=== PATIENT | male | born 1955 | race Caucasian/White ===

== ENCOUNTER → 2018-05-27 16:29 | Outpatient (CLI) | payer BC, SELFPAY ==
--- NOTE | 2018-05-27 16:36 | RAD_ITS ---
STUDY: X-RAY CHEST REASON FOR EXAM: Male, 62 years old. Cough. Shortness of breath. TECHNIQUE: Frontal and lateral views of the chest. COMPARISON: None. FINDINGS: The lungs are clear and expanded. There is no demonstrated pleural abnormality. Sternal cerclage wires and vascular clips are present from a prior sternotomy and coronary artery bypass graft procedure (CABG). Normal mediastinum and gentry. Normal visualized pulmonary arteries. Normal visualized aortic arch and descending thoracic aorta. Normal visualized thoracic spine. Normal visualized ribs, clavicles, and shoulders. There is no demonstrated abnormality of the visualized soft tissue structures of the upper abdomen. RAD/Chest PA and Lateral IMPRESSION: No acute chest disease. Electronically Signed: Mauro Hodges MD at 16:56 EDT , Service support ,
== END ==
PROVIDERS: Family Provider Family Medicine; PCP Family Medicine; Visit Provider Family Medicine
DX: R05 Cough (principal)
CPT/HCPCS: 71046

== ENCOUNTER → 2018-10-28 08:51 | Outpatient (CLI) | payer MEDICARE, SELFPAY ==
[2018-06-03 16:46] VITALS: BMI 28.3
[2018-10-28 11:00] LABS: Anion Gap 7 (5-15); BUN 16 mg/dL (7-18); BUN/Creat Ratio 13.4 RATIO (10-20); Calcium,Total 8.9 mg/dL (8.5-10.1); Chloride 109 mmol/L (98-107); Cholesterol 138 mg/dL (200); Creatinine, Serum 1.19 mg/dL (0.70-1.30); EST Glomerular Filtration Rate 65 mL/min (>60); Est Glom Filt Rate - Afr Amer 79 mL/min (>60); Glucose 107 mg/dL (74-106); High Density Lipoprotein 51 mg/dL; PSA,Total - Annual Screen 0.67 ng/mL (0.00-4.00); Potassium 4.1 mmol/L (3.5-5.1); Sodium Level 143 mmol/L (136-145); Triglycerides 75 mg/dL; Very Low Density Lipoprotein 15 mg/dL (5-40)
--- OUTSIDE RECORDS SUMMARY | 2018-12-21 11:03 | XMS RPT_ITS ---
:1955 Author Organization OHIP Care Team Providers Name Role Phone Odette Horne Attending Unavailable Odette Horne Referring Unavailable Marcin Colbert Primary Care Unavailable Kelly Santillan Attending Unavailable Bandar Mckay Attending Unavailable Marcin Colbert Referring Unavailable Marcin Colbert Primary Care Unavailable Marcin Colbert Attending Unavailable Filemon, Marcin Referring Unavailable Marcin Colbert Primary Care Unavailable PROBLEMS PROBLEMS DATE TYPE CONDITION / CODE ATTENDING STATUS SOURCE 05/27/2018 Unknown R05 - Cough / Odette Horne Active [facility]uca R05(ICD-10) [facility] Repository PROCEDURES PROCEDURES No Procedure Records FoundRESULTS RESULTS BASIC METABOLIC Collected: 10/28/2018 Status: F Source: [facility] PROFILE (BMP) 9:01 AM [facility] REPOSITORY Order Comment: Order Date: 04/18/18 Order Info: [id number] - BMP Order Info: [id number] - LIPID Order Info: 2857-1 - PSA TYPE CODE TESTS RESULT OUT OF RANGE REFERENCE UNITS LAB L501.0100 74-106 mg/dL High GLU 107 Result Comment: Fasting Glucose result from 100 to 125 mg/dL suggests IMPAIRED HOMEOSTASIS per A.D.A. criteria. Please note revised GLUCOSE reference range effective 2017. LAB L501.1000 7-18 mg/dL Normal BUN 16 LAB L501.1100 0.70-1.30 mg/dL Normal CREAT,SERUM 1.19 Result Comment: The validity of the calculated GFR AND GFRAA in patients over 70 years has not been determined. Clinical correlation is essential. LAB L501.1110 >60 mL/min Normal EST GFR 65 Result Comment: Non- GFR Calc LAB L501.1115 >60 mL/min Normal EST GFR - AA 79 Result Comment: GFR Calc LAB L501.1300 10-20 RATIO Normal BUN/CRE 13.4 LAB L501.2200 8.5-10.1 mg/dL CA Normal 8.9 LAB L501.5300 136-145 mmol/L NA Normal 143 LAB L501.5600 3.5-5.1 mmol/L K Normal 4.1 LAB L501.5900 98-107 mmol/L High CL 109 LAB L501.6100 21.0-32.0 mmol/L Normal CO2 27.0 LAB L501.6200 5-15 Normal GAP 7 Performed By: #### L500.2500, L500.4100, L501.9910 #### [facility] [address] [place], [address] LIPID PROFILE Collected: 10/28/2018 Status: F Source: [place] 9:01 AM [facility] REPOSITORY Order Comment: Order Date: 04/18/18 Order Info: [id number] - BMP Order Info: [id number] - LIPID Order Info: 2857-1 - PSA TYPE CODE TESTS RESULT OUT OF RANGE REFERENCE UNITS LAB L501.4900 200 mg/dL Normal CHOL 138 Result Comment: <200 mg/dL Desirable 200-240 mg/dL Borderline >240 mg/dL High Risk LAB L501.5000 mg/dL Normal TRIG 75 Result Comment: The drugs N-Acetylcysteine and Metamizole may falsely depress this assay. Serum Triglycerides Reference Interval Normal <150 mg/dL Borderline high 150 - 199 mg/dL High 200 - 499 mg/dL Very High > or = 500 mg/dL LAB L501.6400 mg/dL Normal HDL 51 Result Comment: The drugs N-Acetylcysteine and Metamizole may falsely depress this assay. Reference Range HDL <40 mg/dL Low HDL Cholesterol HDL >or= 60 mg/dL High HDL Cholesterol LAB L501.6500 0-130 mg/dL Normal LDL 72 LAB L501.6600 5-40 mg/dL Normal VLDL 15 Performed By: #### L500.2500, L500.4100, L501.9910 #### [facility] [address] [place], [address] PSA,TOTAL - ANNUAL Collected: 10/28/2018 Status: F Source: CUCA SCREEN 9:01 AM [facility] REPOSITORY Order Comment: Order Date: 04/18/18 Order Info: [id number] - BMP Order Info: [id number] - LIPID Order Info: 2857-1 - PSA TYPE CODE TESTS RESULT OUT OF RANGE REFERENCE UNITS LAB L501.9910 0.00-4.00 ng/mL Normal PSA,TOT 0.67 SCREEN Result Comment: This test was performed using the TPSA assay method for the Librato chemistry system. Values obtained with different assay methods cannot be used interchangably. When changing PSA assays in the course of monitoring a patient, additional sequential testing should be carried out to confirm baseline values. Performed By: #### L500.2500, L500.4100, L501.9910 #### [facility] [address] [place], [address] CARDIOLOGY VISIT Observed: 06/03/2018 Status: F Source: [facility]CA REPORT 5:54 PM [facility] REPOSITORY [facility] [address] [place] [address] OFFICE VISIT Date of Service: 06/03/18 MR#: [id number] Acct: [id number] Name: CRISPIN FERRARO Rep #: [id number] : 1955 Provider: Bandar Mckay MD Age/Sex: 62/M Location: [facility] Status: Signed HPI HPI Details: CRISPIN FERRARO, is a 62 M who presents to the office today for for outpatient cardiovascular follow-up of his history of underlying CAD status post CABG superimposed upon cardiac ectopy, hyperlipidemia, hypertension. Overall he states he is doing well other than having a recent upper respiratory tract related illness which was treated with antibiotic therapy and further evaluated with chest x-ray which was reported as no acute abnormality. He states he does believe he is feeling better overall. He denies any classic symptoms of angina pectoris. There has been no overt episodes of CHF or pulmonary edema. There has been no near syncope or syncope. Intake Vital Signs06/03/18 Height 5 ft 8 in 06/03/18 Weight: 186 lb 06/03/18 Body Mass Index (BMI) 28.3 06/03/18 Blood Pressure 126/74 Intake Visit Reasons: 6 M FU Allergies No Known Allergies Allergy (Verified 06/03/18 16:46) Medications atorvastatin 40 mg tablet 40 mg PO QDAY #30 tab 03/29/18 [Rx Confirmed 06/03/18] lisinopril 2.5 mg tablet 2.5 mg PO BID #180 tab 05/24/18 [Rx Confirmed 06/03/18] aspirin 81 mg tablet,delayed release 81 mg PO QDAY 05/31/18 [History Confirmed 06/03/18] attghbud-cbr-ljtrz acid 0.4 mg-lycopene 300 mcg-lutein 250 mcg tablet 1 tab PO QDAY 05/31/18 [History Confirmed 06/03/18] [facility] Medical History Hypertension (Chronic) Hyperlipidemia (Chronic) Premature ventricular contraction (Acute) Premature atrial contractions (Acute) Atherosclerotic heart disease of rincon coronary artery without angina pectoris (Chronic) Surgical History Aortocoronary bypass status (Chronic 06/08/11) History of cystoscopy (Resolved) History of thoracentesis (Resolved) Social History Smoking Status: Former smoker alcohol intake: current details: occasional ROS Const Const: Positive for fatigue (increased, recovering from a cold? ); negative for weakness, weight gain, weight loss, frequent falls or excessive sweating Eyes Eyes: Negative for change in vision, blurry vision or transient loss of vision ENT ENT: Negative for dizziness or balance problems Cardio Chest Pain: Yes Character: sharp Location: left chest Duration: brief Exacerbation: activity, rest Palpitations: No Edema: None Muscle aches with walking: None Resp Respiratory: Positive for SOB with activity (slight) and SOB at rest (slight) GI GI: Negative vomiting or vomiting blood/hematemesis : Negative for hematuria Musc Musc: Negative for balance problems, muscle aches/ myalgia, muscle weakness or joint pain Skin Skin: Negative non-healing lesions or rash Neuro Neuro: Negative for weakness, blurry vision, dizziness, lightheadedness, frequent falls or orthostatic symptoms [place] Hematologic/Lymphatic: Negative for easy bleeding Endo Endo: Positive for fatigue (increased, recovering from a cold? ); negative for excessive sweating Psych Psych: Negative for anxiety or depression Allergy Allergy/Immunology: Negative for hives, Negative for rash Supplemental Info He did have a transthoracic echocardiogram performed at [facility] on 01/28/2015. The results are as noted below. Interpretation Summary The study was technically difficult. Left ventricular systolic function is normal. The estimated ejection fraction is 60 %. Paradoxical septal wall motion c/w a post open heart surgery state. Trivial mitral valve insufficiency. Trivial tricuspid valve insufficiency. He had a stress nuclear imaging study performed to be stage on 01/28/2015. The results are as noted below. EXERCISE TOLERANCE TEST: The patient exercised on a Chano protocol for 9 minutes completing stage 3 achieving a peak heart rate of 171 beats per minute (107% predicted maximum heart rate) and a peak blood pressure of 170/90 mmHg and a peak MET capacity of 10 METS. The baseline ECG demonstrated normal sinus rhythm. The peak exercise ECG demonstrated approximately 0.5 to 1.0 mm of horizontal/downsloping ST-segment depression in leads II, III, aVF and V4 through V6 with associated T-wave abnormality with resolution towards baseline beginning less than 1 minute in recovery. There were no cardiac dysrhythmias pretest, during exercise, or recovery. The functional capacity was considered good. There was no report of chest discomfort during exercise or recovery. The examination was discontinued secondary to dyspnea. COMMENT: Heart rate response compatible with a deconditioned heart rate response. IMPRESSION: 1. Technically adequate (percent predicted maximum heart rate greater than 85%) exercise tolerance test. 2. Peak exercise ECG with approximately 0.5 to 1.0 mm of horizontal/downsloping ST-segment depression in leads II, III, aVF, and V4 through V6 with associated T -wave abnormality with resolution towards baseline beginning less than 1 minute in recovery. 3. Nuclear images pending. 4. Comment: Heart response compatible with deconditioned heart rate response. MYOCARDIAL PERFUSION IMAGING STUDY: TECHNIQUE: The patient was injected with 10.8 mCi of Tc99m Cardiolite and subsequently rest SPECT Cardiolite nuclear imaging was obtained in the horizontal long, vertical long, and short axes views. The patient exercised on a Chano protocol for 9 minutes achieving a peak heart rate of 171 beats per minute (107% predicted maximum heart rate) with a peak blood pressure of 170/90 mmHg and a peak MET capacity of 10 METS. The patient was injected with 31.5 mCi of Tc99m Cardiolite and subsequently stress SPECT Cardiolite nuclear imaging was obtained in the horizontal long, vertical long, and short axes views. A gated Cardiolite study at peak stress was obtained. INTERPRETATION: Rest and stress SPECT Cardiolite nuclear imaging demonstrate at rest areas of extracardiac/hepatic and gastrointestinal tracer uptake near the inferior segments. This is less prominent following stress. Otherwise, there appears to be relative uniform tracer uptake. There was end systolic thickening and brightening. The gated Cardiolite study demonstrates myocardial thickening and inward wall motion. The reported LVEF was 63%. IMPRESSION: 1. Rest and stress SPECT Cardiolite nuclear imaging demonstrate relative uniform tracer uptake and myocardial perfusion appearing within normal limits. 2. The gated Cardiolite study reports an LVEF of 63%. His diagnostic cardiac catheterization was performed at [facility] on 06/05/2011. At that point in time he had severe coronary artery disease with what was considered moderate left main coronary artery disease, 40% stenosis in the distal main coronary artery, an occluded LAD, 80% stenosis in the ostial portion of the first diagonal branch, proximal RCA ectasia with 90% stenosis in the mid posterior descending coronary artery, collateral flow from the distal posterior descending coronary artery to the distal LAD, a normal left ventricle with an LVEF of greater than 60%. The LCx/intermediate ramus system was reported as patent. He had a Holter monitor performed on 08/17/2011. The results are as noted below. NORMAL SINUS RHYTHM MINIMUM HR 52 8PM AT 9:00:10 PM, NO ACTIVITY OR SYMPTOM RECORDED. AVERAGE HR 70 8PM MAXIMUM HR 117 8PM AT 5:03:57 PM WHILE WALKING, NO SYMPTOM RECORDED. RARE ISOLATED PREMATURE ATRIAL COMPLEXES. 9 ATRIAL COUPLETS. ONE 4 BEAT RUN OF PROBABLE ECTOPIC ATRIAI TACHYCARDIA RATE 117 8PM AT 1:52:30 PM. RARE ISOLATED PREMATURE VENTRICULAR COMPLEXES. NO RUNS NOTED. NO SYMPTOMS DOCUMENTED IN 24 HOUR HOLTER DIARY. His previous open heart surgery was performed at [facility] on 06/08/2011. At that point time he had a robotic assisted multiple coronary artery bypass grafting 4 with a TENORIO to the LAD, and individual SVG graft to the second diagonal branch, and individual SVG graft to the second obtuse marginal branch, and an individual SVG graft to the posterior descending coronary artery of the RCA system performed by Parag Carter MD Assessment AND Plan 1. Atherosclerosis of rincon coronary artery of rincon heart without angina pectoris I25.10 CABG x4- TENORIO to LAD, SVG to diag 2 of the LAD, SVG to 2nd marginal branch fo the CX, and SVG to the PDA 06/08/11 Plan At the present time he appears to be doing well. He has no acute complaints. He will continue his current cardiovascular medical management. He will have future outpatient cardiovascular follow-up. 2. Postsurgical aortocoronary bypass status Z95.1 CABG x4- TENORIO to LAD, SVG to diag 2 of the LAD, SVG to 2nd marginal branch fo the CX, and SVG to the PDA 06/08/11 Plan He underwent previous CABG as noted above. Again he will continue medical management and follow-up as noted above. 3. Premature atrial beat I49.1 Plan He is not complaining of any ectopy at this time. He will continue medical therapy and follow-up. 4. Premature ventricular beat I49.3 Plan Again he has no complaints of ongoing ectopy. There is been no near syncope or syncope. He will continue medical management. 5. Hyperlipidemia, unspecified hyperlipidemia type E78.5 Plan He had his lipid labs checked in 2017. They were under reasonably good control. He believes they may have been checked since that time. A copy of his most recent lipid labs will be appreciated for continuity of care. 6. Essential hypertension I10 Plan His blood pressure appears to be under good control. He will continue medical therapy. Plan Detail Additional Comments Thank you for allowing me to participate in the care of your patient. Please don't hesitate to call if any issues arise. This note was generated using a voice recognition system and there may be incorrect words, spelling or punctuation that were not noted when reviewing the office note prior to saving. Follow Up 6 Months (PFM) Coding Level of Care Code Off vis,est,level 4 Diagnoses Atherosclerosis of rincon coronary artery of rincon heart without angina pectoris I25.10 [place] vs. transplanted heart: rincon heart Postsurgical aortocoronary bypass status Z95.1 Premature atrial beat I49.1 Premature ventricular beat I49.3 Hyperlipidemia, unspecified hyperlipidemia type E78.5 Hyperlipidemia type: unspecified Essential hypertension I10 Hypertension type: essential hypertension Coding Level of Care Code Off vis,est,level 4 Diagnoses Atherosclerosis of rincon coronary artery of rincon heart without angina pectoris I25.10 [place] vs. transplanted heart: rincon heart Postsurgical aortocoronary bypass status Z95.1 Premature atrial beat I49.1 Premature ventricular beat I49.3 Hyperlipidemia, unspecified hyperlipidemia type E78.5 Hyperlipidemia type: unspecified Essential hypertension I10 Hypertension type: essential hypertension 06/03/18 1754 <Electronically signed by Bandar Mckay MD> Date Bandar Mckay MD Cosigner Signature: Date (if applicable) CC: Marcin Colbert MD CHEST PA AND LATERAL Observed: 05/27/2018 Status: F Source: [place] 4:37 PM [facility] REPOSITORY [facility] Imaging Services [address] [place] [id number] Chest PA and Lateral MR#: [id number] Acct: [id number] Name: CRISPIN FERRARO Rep #: [id number] : 1955 M 62 From: Mauro Hodges MD PCP: Marcin Colbert MD Status: REG CLI Study: Chest PA and Lateral Date of Exam: 05/27/18 Exam# [id number] Ordering Dr: Odette Horne MD STUDY: X-RAY CHEST REASON FOR EXAM: Male, 62 years old. Cough. Shortness of breath. TECHNIQUE: Frontal and lateral views of the chest. COMPARISON: None. FINDINGS: The lungs are clear and expanded. There is no demonstrated pleural abnormality. Sternal cerclage wires and vascular clips are present from a prior sternotomy and coronary artery bypass graft procedure (CABG). Normal mediastinum and gentry. Normal visualized pulmonary arteries. Normal visualized aortic arch and descending thoracic aorta. Normal visualized thoracic spine. Normal visualized ribs, clavicles, and shoulders. There is no demonstrated abnormality of the visualized soft tissue structures of the upper abdomen. RAD/Chest PA and Lateral IMPRESSION: No acute chest disease. Electronically Signed: Mauro Hodges MD at 16:56 EDT , Service support , CC: Odette Horne MD; Marcin Colbert MD Corrosion Control Specialist: Signed ALLERGIES ALLERGIES DATE TYPE / CODE NAME / CODE REACTION SEVERITY SOURCE 06/03/2018 Drug No Known Unknown [facility] Allergy/4160 Allergies/F00 Hospital 55386(SNOMED 5513575(RXNOR Repository CT) M) ENCOUNTERS ENCOUNTERS ADMIT/DISCHARGE ACCOUNT ADMITTING ENCOUNTER LOCATION SOURCE NUMBER CLASS 10/28/2018 [id number] Ambulatory [facility] 8 [facility] ing:MTLAB Repository 06/03/2018/ [id number] Ambulatory BMSBuilding:B [facility] 8 2 [facility] Repository 05/31/2018 [id number] Ambulatory BMSBuilding:B [facility] 0 [facility] Repository 05/27/2018 [id number] Ambulatory [facility] 2 [facility] ing:MTRAD Repository PAYERS PAYERS ENCOUNTER GUARANTOR PAYER SUBSCRIBER SOURCE 10/28/2018 CRISPIN Benitez Primary CRISPIN [id number] Insurance:DIANN STYLES: [id number]: Repository [id number]: (449) [id number] [phone] (HP) e Date:7739-31-16[address], [place] [address]IK: 10/28/2018 Secondary NOT GIVENUNK [facility] Insurance:SELF PAY [facility] Number: Effective Repository Date:2018-10-28 06/03/2018 CRISPIN Benitez Primary CRISPIN Thurman [id number] Insurance:ANTHEMPolic WALTERDOB: Community [place] Number: [id number], [place] [id number] Repository 511[address]Btp: (330) Date:6250-19-27IZ [phone] () [id number] [place] [id number]: 06/03/2018 Secondary NOT GIVENUNK [facility] Insurance:SELF PAY [facility] Number: Effective Repository Date:2017-11-14 05/31/2018 Crispin Benitez Primary Crispin Thurman [id number] Insurance:ANTHEMPolic WalterDOB: Community [place] Number: [id number] [id number] Repository [address]Zxj: ([phone]) Date:6226-02-59BR [phone] () [id number] [place] [id number]: 05/31/2018 Secondary NOT GIVENUNK [facility] Insurance:SELF PAY [facility] Number: Effective Repository Date:2018-05-31 05/27/2018 Crispin Benitez Primary Crispin Thurman [id number] Insurance:ANTHEMPolic WalterDOB: Community [place] y Number: [id number] [id number] Repository [address]Hwv: ([phone]) Date:1043-93-18PF [phone] () [id number] [place] [id number]: 05/27/2018 Secondary NOT GIVENUNK [facility] Insurance:SELF PAY [facility] Number: Effective Repository Date:2018-05-27
== END ==
PROVIDERS: Family Provider Family Medicine; PCP Family Medicine; Referring Provider Family Medicine; Visit Provider Family Medicine
DX: I10 Essential (primary) hypertension (principal); E78.00 Pure hypercholesterolemia, unspecified; Z12.5 Encounter for screening for malignant neoplasm of prostate
CPT/HCPCS: 36415; 80048; 80061; 84153; G0103

== ENCOUNTER → 2019-06-24 | Outpatient (CLI) | payer MEDICARE, SELFPAY ==
[2019-06-17 06:53] VITALS: BMI 28.5
[2019-06-24 10:22] LABS: Glucose 98 mg/dL (74-106)
[2019-06-24 10:31] LABS: AST(SGOT) 19 U/L (15-37); Alanine Aminotransfer ALT/SGPT 31 U/L (16-61); Albumin, Serum 3.7 g/dL (3.2-5.0); Alkaline Phosphatase 62 U/L (45-117); Bilirubin, Direct 0.27 mg/dL (0.00-0.30); Cholesterol 134 mg/dL (200); High Density Lipoprotein 52 mg/dL; Protein, Total 6.7 g/dL (6.4-8.2); Triglycerides 93 mg/dL; Very Low Density Lipoprotein 19 mg/dL (5-40)
[2019-06-24 15:10] LABS: Hemoglobin A1c 5.3 % (4.2-6.3)
== END | disposition home or self-care (01) ==
LOC: MTLAB 08:00
PROVIDERS: Family Provider Family Medicine; PCP Family Medicine; Referring Provider Nurse Practitioner Family; Visit Provider Nurse Practitioner Family
DX: E78.5 Hyperlipidemia, unspecified (principal); Z95.1 Presence of aortocoronary bypass graft; R73.09 Other abnormal glucose
CPT/HCPCS: 80061; 80076; 82947; 83036

== ENCOUNTER → 2019-10-16 08:27 | Outpatient (CLI) | payer MEDICARE, OTHER, SELFPAY ==
[2019-06-17 06:53] VITALS: BMI 28.5
[2019-10-16 10:02] LABS: Absolute Lymphocyte Count 1.64 X10^3/uL (0.83-4.51); Absolute Neutrophil Count 4.4 X10^3/uL (2.0-7.7); Basophil# 0.05 X10^3/uL; Basophil% 0.7 % (0-1); Eosinophils% 4.2 % (0-5); Hematocrit 41.9 % (40-54); Hemoglobin 14.1 g/dL (13.0-16.5); Lymphocyte # 1.64 X10^3/ul (4.0); Lymphocyte % 23.1 % (19-41); Mean Corp Hgb Conc 33.7 g/dL (32-36); Mean Corpuscular Hgb 30.2 pg (27.0-32.0); Mean Corpuscular Volume 89.7 fL (80-94); Mean Platelet Vol. 10.2 fl (6.2-12.0); Monocyte% 9.8 % (0-10); NRBC Flagged by Analyzer 0 % (0-5); Neutrophil # 4.38 X10^3/uL (2.7-7.7); Neutrophil % 61.6 % (47-70); Platelet Count 209 K/mm3 (150-450); RBC Distribution Width CV 12.3 % (11.6-14.6); RBC Distribution Width SD 39.9 fl (35.1-43.9); Red Blood Count 4.67 M/mm3 (4.6-6.2); White Blood Count 7.1 K/mm3 (4.4-11.0)
[2019-10-16 10:39] LABS: Anion Gap 6 (5-15); BUN 14 mg/dL (7-18); Calcium,Total 9.3 mg/dL (8.5-10.1); Chloride 108 mmol/L (98-107); Creatinine, Serum 1.08 mg/dL (0.70-1.30); EST Glomerular Filtration Rate 73 mL/min (>60); Est Glom Filt Rate - Afr Amer 88 mL/min (>60); Glucose 98 mg/dL (74-106); Potassium 4.5 mmol/L (3.5-5.1); Sodium Level 142 mmol/L (136-145)
== END ==
PROVIDERS: Family Provider Family Medicine; PCP Family Medicine; Referring Provider Family Medicine; Visit Provider Family Medicine
DX: I10 Essential (primary) hypertension (principal); R23.2 Flushing
CPT/HCPCS: 36415; 80048; 84443; 85025

== ENCOUNTER → 2019-12-26 08:17 | Outpatient (CLI) | payer MEDICARE, OTHER, SELFPAY ==
[2019-12-19 11:00] VITALS: BMI 28.3
[2019-12-26 11:04] LABS: AST(SGOT) 23 U/L (15-37); Alanine Aminotransfer ALT/SGPT 49 U/L (16-61); Albumin, Serum 3.8 g/dL (3.2-5.0); Alkaline Phosphatase 70 U/L (45-117); Bilirubin, Direct 0.21 mg/dL (0.00-0.30); Cholesterol 151 mg/dL (200); Globulin 3.2 g/dL (2.2-4.2); High Density Lipoprotein 55 mg/dL; Triglycerides 62 mg/dL; Very Low Density Lipoprotein 12 mg/dL (5-40)
== END ==
PROVIDERS: PCP Family Medicine; Referring Provider Internal Medicine Cardiovascular Disease; Visit Provider Internal Medicine Cardiovascular Disease
DX: E78.00 Pure hypercholesterolemia, unspecified (principal)
CPT/HCPCS: 36415; 80061; 80076

== ENCOUNTER → 2020-03-19 14:33 | Outpatient (CLI) | payer MEDICARE, OTHER, SELFPAY ==
[2020-03-19 14:16] VITALS: BMI 28.3
--- NOTE | 2020-03-19 14:36 | RAD_ITS ---
STUDY: X-RAY CHEST REASON FOR EXAM: Male, 64 years old. CHEST PAIN WITH SOME RADIATION INTO BACK TECHNIQUE: PA and lateral views of the chest. COMPARISON: 05/27/2018. FINDINGS: The lungs are clear and expanded. There is no demonstrated pleural abnormality. Midline sternotomy wires with normal size of the heart. Normal mediastinum and gentry. Normal visualized pulmonary arteries. Normal visualized aortic arch and descending thoracic aorta. Normal visualized thoracic spine. Normal visualized ribs, clavicles, and shoulders. There is no demonstrated abnormality of the visualized soft tissue structures of the upper abdomen. RAD/Chest PA and Lateral IMPRESSION: Status postoperative changes as described above, otherwise normal x-ray examination of the chest. Electronically Signed: Mandy Martin MD at 0:20 EDT , Service support ,
== END ==
PROVIDERS: PCP Family Medicine; Referring Provider Physician Assistant Medical; Visit Provider Physician Assistant Medical
DX: I25.10 Atherosclerotic heart disease of native coronary artery without angina pectoris (principal); E78.5 Hyperlipidemia, unspecified; R07.9 Chest pain, unspecified
CPT/HCPCS: 71046

== ENCOUNTER → 2020-04-14 06:08 | Outpatient (CLI) | payer MEDICARE, OTHER, SELFPAY ==
[2020-03-19 14:16] VITALS: BMI 28.3
--- NOTE | 2020-04-14 08:17 | STRESSREP ---
Stress Test Report Date: 04-14-2020 Procedure: Exercise tolerance test/imaging study Indications: Chest pain; CAD; CABG Consent: Per the patient Procedure: The patient exercised on a Chano protocol for 7 minutes and 30 seconds completing Stage I and 1 minute and 30 seconds of Stage II achieving a peak heart rate of 166 bpm (107 % predicted maximal heart rate) with a peak blood pressure 192/92 mmHg and a peak MET capacity of 9 METs. The baseline ECG demonstrated sinus rhythm. The peak exercise ECG demonstrated approximately 0.5 to 1[address] segment depression in leads II, III, aVF, and V3 through V6 with subsequent resolution towards baseline in recovery. There were occasional PVCs during exercise and occasional PACs and PVCs during recovery. The functional capacity was considered average. There was no complaint of chest discomfort during exercise or recovery. The examination was discontinued secondary to dyspnea. Impression: 1. Technically adequate (percent predicted maximal heart rate greater than 85%) exercise tolerance test 2. Peak exercise ECG with approximately 0.5 to [address] segment depression in leads II, III, aVF, and V3 through V6 with subsequent resolution towards baseline in recovery 3. There were occasional PVCs during exercise and occasional PACs and PVCs during recovery 4. Nuclear images pending Myocardial perfusion imaging study: Technique: The patient was injected with 11.0 mCi of technetium 99m Cardiolite and subsequently rest SPECT Cardiolite nuclear imaging was obtained in the horizontal long, vertical long, and short axis views. The patient exercised on a Chano protocol for 7 minutes and 30 seconds completing Stage I and 1 minute and 30 seconds of Stage II achieving a peak heart rate of 166 bpm (107 % predicted maximal heart rate) with a peak blood pressure 192/92 mmHg and a peak MET capacity of 9 METs. The patient was injected with 33.0 mCi of technetium 99m Cardiolite and subsequently stress SPECT Cardiolite nuclear imaging was obtained in the horizontal long, vertical long, and short axis views. A gated Cardiolite study at peak stress was obtained. Interpretation: Rest and stress SPECT Cardiolite nuclear imaging status post realignment, normalization, and attenuation correction, demonstrates the appearance of relative uniform tracer uptake and myocardial perfusion appearing within normal limits. There are no myocardial perfusion deficits appreciated on the post attenuation resting or stress polar map images. There is end systolic thickening and brightening. The gated Cardiolite study demonstrates myocardial thickening and inward wall motion. The reported LVEF is 67 %. Impression: 1. Rest and stress SPECT Cardiolite nuclear imaging demonstrate relative uniform tracer uptake and myocardial perfusion appearing within normal limits. 2. The gated Cardiolite study reports an LVEF of 67 %. This note was generated with [employer] software. It may contain incorrect words, spelling, and punctuation that were not noted in checking the note before signing.
== END ==
PROVIDERS: PCP Family Medicine; Referring Provider Physician Assistant Medical; Visit Provider Physician Assistant Medical
DX: I25.119 Atherosclerotic heart disease of native coronary artery with unspecified angina pectoris (principal)
CPT/HCPCS: 78452; 93017; A9500

== ENCOUNTER 2020-05-11 08:51 | Day surgery (SDC) | payer MEDICARE, OTHER, SELFPAY ==
--- NOTE | 2020-04-22 04:06 | HP_ITS ---
HPI HPI History of Present Illness Surgical H&P: Yes Details: This is a 64 year old white male presents here today for an outpatient cardiovascular follow-up with a history of underlying CAD status post CABG in May 2011 with TENORIO to LAD, SVG to diagonal 2 of the LAD, SVG to 2nd marginal branch of the LCx, and SVG to PDA superimposed upon cardiac ectopy, hyperlipidemia, and hypertension. He recently was evaluated for concerns of chest discomfort. He states that after painting in his home this spring he has noted a sensation of discomfort in his central chest area. He states he just can send something is there and it just does not seem his normal. It does not necessarily radiate other than at times up to his neck. It is not associated with ongoing nausea, emesis, or diaphoresis. He has not had near syncope or syncope. He was given nitroglycerin sublingual tablets to have as a precaution. He has not had to use them. He has undergone subsequent evaluation with an exercise tolerance test/imaging study. This was performed on 04-14-2020. The results were discussed with him. They are noted below. It is noted that his findings are similar to findings from a previous exercise tolerance test/imaging study performed in 2014. He does not describe any evidence of orthopnea or PND or peripheral pitting edema. He has had no near syncope or syncope. He brings with him his blood pressure recordings and his heart rate recordings. Overall his blood pressures appear to be well controlled as well as his heart rate. He does have occasional skipped beats . Intake Vital Signs 04/22/20 Height 5 ft 8 in 04/22/20 Weight: 189 lb 4 oz 04/22/20 BMI 28.8 04/22/20 BP 126/74 H 04/22/20 Blood Pressure Location Lt brachial 04/22/20 Position Sitting 04/22/20 Respiration 18 04/22/20 Pulse 64 04/22/20 Pulse Source Auscultation 04/22/20 BMI 28.3 Intake Visit Reasons: 1 M FU/COMING IN Allergies No Known Allergies Allergy (Verified 04/22/20 14:54) Medications aspirin 81 mg tablet,delayed release 81 mg PO QDAY 05/31/18 [History Confirmed 04/22/20] lflykkcm-vsp-ywvaj acid 0.4 mg-lycopene 300 mcg-lutein 250 mcg tablet 1 tab PO QDAY 07/06/18 [History Confirmed 04/22/20] lisinopril 2.5 mg tablet 2.5 mg PO BID #180 tab 07/01/19 [Rx Confirmed 04/22/20] atorvastatin 40 mg tablet 40 mg PO QDAY #90 tab 03/10/20 [Rx Confirmed 04/22/20] nitroglycerin 0.4 mg sublingual tablet 0.4 mg SUBLINGUAL ONCE #25 tab 03/19/20 [Rx Confirmed 04/22/20] PFSH Medical History Hyperlipidemia (Chronic) Premature ventricular contraction (Chronic) Premature atrial contractions (Chronic) Atherosclerotic heart disease of zuni coronary artery without angina pectoris (Chronic) Melanoma (Acute) Essential hypertension (Chronic) Surgical History Aortocoronary bypass status (Chronic ~06/08/11) History of cystoscopy (Resolved) History of thoracentesis (Resolved) Family History Father , Age 70 Cancer brain Social History (Updated 04/22/20 @ 16:[address] Bandar Mckay MD) Smoking Status: Never smoker alcohol intake: current alcohol intake frequency: a few times a week details: occasional caffeine: Yes Type: coffee Number of servings: 3 ROS Const Const: Negative for fatigue, weakness, frequent falls, excessive sweating, weight gain or weight loss Eyes Eyes: Negative for transient loss of vision, blurry vision or change in vision ENT ENT: Negative for dizziness or balance problems Cardio Chest Pain: Yes (has improved) Character: other (pressure; feel up in throat) Onset: at rest, exercise Location: mid sternal Duration: hours (1 to 1.5hrs) Palpitations: No Edema: None Muscle aches with walking: None Resp Respiratory: Negative for SOB with activity or SOB at rest GI GI: Negative vomiting or vomiting blood/hematemesis : Negative for hematuria Musc Musc: Negative for muscle aches/ myalgia, muscle weakness, joint pain or balance problems Skin Skin: Negative non-healing lesions or rash Neuro Neuro: Negative for dizziness, lightheadedness, orthostatic symptoms, frequent falls, weakness or blurry vision [place] Hematologic/Lymphatic: Negative for easy bleeding Endo Endo: Negative for fatigue or excessive sweating Psych Psych: Negative for anxiety or depression Allergy Allergy/Immunology: Negative for hives, Negative for rash Cardiology Exam Const Appearance: cooperative, healthy appearing, comfortable, no acute distress, well developed and well groomed Orientation: alert, awake and oriented x3 Head Head: normal to inspection, normocephalic and atraumatic Ears: hearing grossly normal bilaterally Nose: external nose normal Face and Sinus: face symmetric Eyes Eyelids: eyelids normal Conjunctivae: conjunctivae normal Pupils: PERRL EOM: EOM intact bilaterally Neck Neck: normal visual inspection, no lymphadenopathy and no JVD Carotids: Negative bruit Neck Mass: Negative Neck mass Chest Chest inspection: normal inspection of the chest, symmetric chest movement and normal respiratory effort Auscultation: Bilateral: Clear to Auscultation Cardio Palpation: normal PMI Rate: regular rate Rhythm: regular rhythm and ectopic beats Heart sounds: S1 normal and S2 normal; negative rub, gallop or murmur GI GI: normal to inspection, soft and bowel sounds present; negative tender Neuro General: alert, awake, oriented x3 and moves all extremities Skin Skin: no rashes or lesions noted Extremities Pulses: Normal: Right Posterior Tibial Pulse, Left Posterior Tibial Pulse, Right Radial Pulse, Left Radial Pulse Lower Extremity Edema: None: Bilateral Psych Psychological: normal affect Assessment & Plan 1. Atherosclerosis of zuni coronary artery of zuni heart without angina pectoris I25.10 CABG x4- TENORIO to LAD, SVG to diag 2 of the LAD, SVG to 2nd marginal branch fo the CX, and SVG to the PDA 06/08/11 Plan At the present time he does have the sensation of an element of centralized chest discomfort that radiates to his neck. He states this is somewhat random. He questions whether is musculoskeletal brought on by his recent painting. However the same time he just senses something is not right. He is concern is related to his history of underlying cardiovascular disease. He has undergone further evaluation. This included his follow-up exercise tolerance test/imaging study. The results were discussed with him. At the present time he will continue his current medical therapy. As he still has his waxing and waning symptoms of which she is uncomfortable with he will consider, as there is been no other definitive etiology to explain them other than potentially his musculoskeletal activity, as to whether he wants to proceed with further evaluation with diagnostic cardiac catheterization to reassess his zuni vessels and graft vessels for any concerns that would be leading to his symptoms and potentially a false negative nuclear imaging study. He will notify the office of how he wants to proceed. 2. Postsurgical aortocoronary bypass status Z95.1 CABG x4- TENORIO to LAD, SVG to diag 2 of the LAD, SVG to 2nd marginal branch fo the CX, and SVG to the PDA 06/08/11 Plan He will continue med therapy and evaluation care as noted above. 3. PAC (premature atrial contraction) I49.1 Plan He does have a history of cardiac ectopy as previously noted. This was noted on his examination. He will continue his current medical management. 4. PVC (premature ventricular contraction) I49.3 Plan He will continue evaluation care as noted above. 5. Hyperlipidemia, unspecified hyperlipidemia type E78.5 Plan He has had lipid labs performed. Based upon his laboratory study from 12/26/2019 his total cholesterol was 151 with an LDL of 84 and an HDL of 55. His triglycerides were 62. He will continue medical therapy and follow-up as deemed appropriate. Plan Detail Additional Comments The above was discussed with him. He is agreeable to this approach. Thank you for allowing me to participate in the care of your patient. Please don't hesitate to call if any issues arise. This note was generated using a voice recognition system and there may be incorrect words, spelling or punctuation that were not noted when reviewing the office note prior to saving. Time spent the patient's evaluation/care/medical decision making process: 20 minutes. Follow Up 2 Months (as scheduled) Coding Level of Care Code Off vis,est,level 3 Diagnoses Atherosclerosis of zuni coronary artery of zuni heart without angina pectoris I25.10 ??[place] vs. transplanted heart: zuni heart Postsurgical aortocoronary bypass status Z95.1 PAC (premature atrial contraction) I49.1 PVC (premature ventricular contraction) I49.3 Hyperlipidemia, unspecified hyperlipidemia type E78.5 ??Hyperlipidemia type: unspecified Time Spent (min) 20 Comment 96258 Coding Level of Care Code Off vis,est,level 3 Diagnoses Atherosclerosis of zuni coronary artery of zuni heart without angina pectoris I25.10 ??[place] vs. transplanted heart: zuni heart Postsurgical aortocoronary bypass status Z95.1 PAC (premature atrial contraction) I49.1 PVC (premature ventricular contraction) I49.3 Hyperlipidemia, unspecified hyperlipidemia type E78.5 ??Hyperlipidemia type: unspecified Time Spent (min) 20 Comment [id number] Supplemental Info Supplemental Information He did have a transthoracic echocardiogram performed at [facility] on 01/28/2015. The results are as noted below. Interpretation Summary The study was technically difficult. Left ventricular systolic function is normal. The estimated ejection fraction is 60 %. Paradoxical septal wall motion c/w a post open heart surgery state. Trivial mitral valve insufficiency. Trivial tricuspid valve insufficiency. He had a stress nuclear imaging study performed to be stage on 01/28/2015. The results are as noted below. EXERCISE TOLERANCE TEST: The patient exercised on a Chano protocol for 9 minutes completing stage 3 achieving a peak heart rate of 171 beats per minute (107% predicted maximum heart rate) and a peak blood pressure of 170/90 mmHg and a peak MET capacity of 10 METS. The baseline ECG demonstrated normal sinus rhythm. The peak exercise ECG demonstrated approximately 0.5 to 1.0 mm of horizontal/downsloping ST-segment depression in leads II, III, aVF and V4 through V6 with associated T-wave abnormality with resolution towards baseline beginning less than 1 minute in recovery. There were no cardiac dysrhythmias pretest, during exercise, or recovery. The functional capacity was considered good. There was no report of chest discomfort during exercise or recovery. The examination was discontinued secondary to dyspnea. COMMENT: Heart rate response compatible with a deconditioned heart rate response. IMPRESSION: 1. Technically adequate (percent predicted maximum heart rate greater than 85%) exercise tolerance test. 2. Peak exercise ECG with approximately 0.5 to 1.0 mm of horizontal/downsloping ST-segment depression in leads II, III, aVF, and V4 through V6 with associated T -wave abnormality with resolution towards baseline beginning less than 1 minute in recovery. 3. Nuclear images pending. 4. Comment: Heart response compatible with deconditioned heart rate response. MYOCARDIAL PERFUSION IMAGING STUDY: TECHNIQUE: The patient was injected with 10.8 mCi of Tc99m Cardiolite and subsequently rest SPECT Cardiolite nuclear imaging was obtained in the horizontal long, vertical long, and short axes views. The patient exercised on a Chano protocol for 9 minutes achieving a peak heart rate of 171 beats per minute (107% predicted maximum heart rate) with a peak blood pressure of 170/90 mmHg and a peak MET capacity of 10 METS. The patient was injected with 31.5 mCi of Tc99m Cardiolite and subsequently stress SPECT Cardiolite nuclear imaging was obtained in the horizontal long, vertical long, and short axes views. A gated Cardiolite study at peak stress was obtained. INTERPRETATION: Rest and stress SPECT Cardiolite nuclear imaging demonstrate at rest areas of extracardiac/hepatic and gastrointestinal tracer uptake near the inferior segments. This is less prominent following stress. Otherwise, there appears to be relative uniform tracer uptake. There was end systolic thickening and brightening. The gated Cardiolite study demonstrates myocardial thickening and inward wall motion. The reported LVEF was 63%. IMPRESSION: 1. Rest and stress SPECT Cardiolite nuclear imaging demonstrate relative uniform tracer uptake and myocardial perfusion appearing within normal limits. 2. The gated Cardiolite study reports an LVEF of 63%. Stress Test Report Date: 04-14-2020 Procedure: Exercise tolerance test/imaging study Indications: Chest pain; CAD; CABG Consent: Per the patient Procedure: The patient exercised on a Chano protocol for 7 minutes and 30 seconds completing Stage I and 1 minute and 30 seconds of Stage II achieving a peak heart rate of 166 bpm (107 % predicted maximal heart rate) with a peak blood pressure 192/92 mmHg and a peak MET capacity of 9 METs. The baseline ECG demonstrated sinus rhythm. The peak exercise ECG demonstrated approximately 0.5 to 1.[address] segment depression in leads II, III, aVF, and V3 through V6 with subsequent resolution towards baseline in recovery. There were occasional PVCs during exercise and occasional PACs and PVCs during recovery. The functional capacity was considered average. There was no complaint of chest discomfort during exercise or recovery. The examination was discontinued secondary to dyspnea. Impression: 1. Technically adequate (percent predicted maximal heart rate greater than 85%) exercise tolerance test 2. Peak exercise ECG with approximately 0.5 to 1.[address] segment depression in leads II, III, aVF, and V3 through V6 with subsequent resolution towards baseline in recovery 3. There were occasional PVCs during exercise and occasional PACs and PVCs during recovery 4. Nuclear images pending Myocardial perfusion imaging study: Technique: The patient was injected with 11.0 mCi of technetium 99m Cardiolite and subsequently rest SPECT Cardiolite nuclear imaging was obtained in the horizontal long, vertical long, and short axis views. The patient exercised on a Chano protocol for 7 minutes and 30 seconds completing Stage I and 1 minute and 30 seconds of Stage II achieving a peak heart rate of 166 bpm (107 % predicted maximal heart rate) with a peak blood pressure 192/92 mmHg and a peak MET capacity of 9 METs. The patient was injected with 33.0 mCi of technetium 99m Cardiolite and subsequently stress SPECT Cardiolite nuclear imaging was obtained in the horizontal long, vertical long, and short axis views. A gated Cardiolite study at peak stress was obtained. Interpretation: Rest and stress SPECT Cardiolite nuclear imaging status post realignment, normalization, and attenuation correction, demonstrates the appearance of relative uniform tracer uptake and myocardial perfusion appearing within normal limits. There are no myocardial perfusion deficits appreciated on the post attenuation resting or stress polar map images. There is end systolic thickening and brightening. The gated Cardiolite study demonstrates myocardial thickening and inward wall motion. The reported LVEF is 67 %. Impression: 1. Rest and stress SPECT Cardiolite nuclear imaging demonstrate relative uniform tracer uptake and myocardial perfusion appearing within normal limits. 2. The gated Cardiolite study reports an LVEF of 67 %. His diagnostic cardiac catheterization was performed at [facility] on 06/05/2011. At that point in time he had severe coronary artery disease with what was considered moderate left main coronary artery disease, 40% stenosis in the distal main coronary artery, an occluded LAD, 80% stenosis in the ostial portion of the first diagonal branch, proximal RCA ectasia with 90% stenosis in the mid posterior descending coronary artery, collateral flow from the distal posterior descending coronary artery to the distal LAD, a normal left ventricle with an LVEF of greater than 60%. The LCx/intermediate ramus system was reported as patent. He had a Holter monitor performed on 08/17/2011. The results are as noted below. NORMAL SINUS RHYTHM MINIMUM HR 52 8PM AT 9:00:10 PM, NO ACTIVITY OR SYMPTOM RECORDED. AVERAGE HR 70 8PM MAXIMUM HR 117 8PM AT 5:03:57 PM WHILE WALKING, NO SYMPTOM RECORDED. RARE ISOLATED PREMATURE ATRIAL COMPLEXES. 9 ATRIAL COUPLETS. ONE 4 BEAT RUN OF PROBABLE ECTOPIC ATRIAL TACHYCARDIA RATE 117 BPM AT 1:52:30 PM. RARE ISOLATED PREMATURE VENTRICULAR COMPLEXES. NO RUNS NOTED. NO SYMPTOMS DOCUMENTED IN 24 HOUR HOLTER DIARY. His previous open heart surgery was performed at [facility] on 06/08/2011. At that point time he had a robotic assisted multiple coronary artery bypass grafting ?4 with a TENORIO to the LAD, and individual SVG graft to the second diagonal branch, and individual SVG graft to the second obtuse marginal branch, and an individual SVG graft to the posterior descending coronary artery of the RCA system performed by Parag Carter MD Labs LDL Cholesterol 84 mg/dL (0-130) 12/26/19 HDL Cholesterol 55 mg/dL (40-) 12/26/19 Triglycerides 62 mg/dL (-199) 12/26/19 VLDL Cholesterol 12 mg/dL (5-40) 12/26/19 Diagnostics Electrocardiogram 03/19/20 Echocardiogram 01/28/15 Stress Test Nuclear Medicine 04/14/20 Stress Test 04/14/20 Chest X-Ray 03/19/20 04/22/20 1606 <Electronically signed by Bandar loo MD> Date _ Bandar Mckay MD Addendum: The patient has elected to proceed with further definitive evaluation of his coronary/graft anatomy with diagnostic cardiac catheterization. The procedure and risks were discussed with him. He was agreeable to this approach. I have re-examined the patient. There are no clinical changes since date of exam.
[2020-04-22 14:49] VITALS: BMI 28.8
[2020-05-04 10:31] LABS: Hematocrit 41.9 % (40-54); Hemoglobin 14.1 g/dL (13.0-16.5); Mean Corp Hgb Conc 33.7 g/dL (32-36); Mean Corpuscular Hgb 30.6 pg (27.0-32.0); Mean Corpuscular Volume 90.9 fL (80-94); Mean Platelet Vol. 10.5 fl (6.2-12.0); Platelet Count 210 K/mm3 (150-450); RBC Distribution Width CV 12.3 % (11.6-14.6); RBC Distribution Width SD 40.3 fl (35.1-43.9); Red Blood Count 4.61 M/mm3 (4.6-6.2); White Blood Count 7.7 K/mm3 (4.4-11.0)
[2020-05-04 10:39] LABS: Partial Thromboplast Time 28.7 Seconds (24.1-36.2)
[2020-05-04 11:01] LABS: Anion Gap 7 (5-15); BUN 19 mg/dL (7-18); BUN/Creat Ratio 17.3 RATIO (10-20); Calcium,Total 9.4 mg/dL (8.5-10.1); Chloride 109 mmol/L (98-107); EST Glomerular Filtration Rate 71 mL/min (>60); Est Glom Filt Rate - Afr Amer 86 mL/min (>60); Glucose 100 mg/dL (74-106); Sodium Level 141 mmol/L (136-145)
[2020-05-10 13:04] VITALS: BMI 28.8
--- NOTE | 2020-05-11 15:10 | CL.D_ITS ---
Patient Name: APRIL FERRARO Study Date: 05/11/2020 Performing: Bandar Mckay MD Ht: 68.11 inches 173 cm : 1955 Wt: 189.6 lbs 86 kg Age: 64 Gender: male BSA: 2 PROCEDURE(S) PERFORMED YD17-LED/COR/LV/CABG DC11-AO ROOT ANGIO WITH HEART CATH CLINICAL PROFILE AND INDICATIONS Indications: Suspected CAD Heart Failure: None Stress/Imaging Date: 2Stress Test with SPECT MPI: Indeterminant (abnormal ECG ETT / nega tive myocardial perfusion study) Angina Classification Anginal Classification w/in 2 Weeks: CCS II CAD Presentations: Other: Chest Pain CONCLUSIONS Elevated Left Ventricular End Diastolic Pressure LV regional wall motion abnormality with overall preserved LV systolic function LVEF: by LV gram 60 % [place] Multivessel CAD TENORIO to LAD: patent SVG to DX2: occluded SVG to OM1: occluded SVG to RPDA: occluded RECOMMENDATIONS Risk factor modification Medical therapy Case reviewed / discussed with Dr. Sue DESCRIPTION OF PROCEDURE The patient arrived to the procedure lab. The risks and benefits of the procedure as well as a full d escription of our services here and current unavailability of surgical backup were fully explained to the patient and/or their significant other prior to the catheterization. The Timeout was completed, verifying the correct patient and procedure. The patient's procedural site was prepped and draped in the usual fashion. Local anesthetic was given subcutaneously to right groin region with Lidocaine 2%. Using a modified Seldinger technique, arterial access was obtained via the right femoral artery, a 4 Fr sheath was inserted Left Coronary Artery selective angiography was performed in multiple views us ing a 4 Fr. JL5 catheter. Right Coronary Artery selective angiography was then performed in multiple views using a 4 Fr. 3DRC catheter. Left internal mammary artery graft to the LAD selective angiograph y was performed in multiple views using a 4 Fr. IM catheter. Left Ventriculography was performed in CANCHOLA projection using a 4 Fr. Pigtail catheter. LV to AO pullback pressures were then rec orded.The arterial sheath was pulled and manual compression applied until hemostasis is achieved. CORONARY ANGIOGRAPHY DOMINANCE: Right Dominant LEFT HEART ASSESSMENT Left Ventricular Ejection Fraction: by LV Gram 60 % Inferior Mid Hypokinesis Elevated Left Ventricular End Diastolic Pressure LVEDP: 22 mmHg LEFT MAIN: Moderate calcification, Distal: 25 % Stenosis LEFT ANTERIOR DESCENDING ARTERY: PROX LAD: Mild calcification, is occluded MID LAD: Fills via the TENORIO graft with no angiographically significant appearing disease distal to th e graft attachment DIAGONAL 2: Proximal - Fills retrograde from the TENORIO graft to the LAD with mild luminal irregulariti es CIRCUMFLEX ARTERY: Mild luminal irregularities OM 1: Mid - Eccentric: 25 % Stenosis RIGHT CORONARY ARTERY: Mild luminal irregularities MID RCA: eccentric: 25 % Stenosis RT PDA: Proximal - small caliber vessel: 50 - 75 % Stenosis, Mid - small caliber vessel: 50 - 75 % St enosis GRAFTS: TENORIO graft to the Mid LAD is patent Saphenous Vein graft to the 2nd Diagonal is totally occluded Saphenous Vein graft to the 1st OM is totally occluded Saphenous Vein graft to the RPDA is totally occluded 2nd Diagonal: Proximal - Fills retrograde from the TENORIO graft to the LAD with mild luminal irregulari ties AORTIC ROOT: Angiographically normal COMPLICATIONS No Complications PROCEDURE MEDICATIONS Versed 1 mg IV Oxygen: 2 L/min via nasal cannula SUMMARY OF HEMODYNAMIC DATA Time AIR REST ECG 09:23:27 AO 113/73 (92) SA 10:57:32 LV 136/-7, 21 11:29:37 LV 136/-8, 22 11:29:44 LV 138/-7, 21 11:30:55 LV 144/-11, 20 11:31:02 LVp 141/-13, 20 11:31:11 AOp 142/71 (101) 11:31:16 Signed By Bandar Mckay MD On 05/11/2020 15:10:18 Bandar Mckay MD
== END 2020-05-11 16:05 | disposition home or self-care (01) ==
PROVIDERS: PCP Family Medicine; Referring Provider Internal Medicine Cardiovascular Disease; Visit Provider Internal Medicine Cardiovascular Disease
DX: I25.810 Atherosclerosis of coronary artery bypass graft(s) without angina pectoris (principal); I10 Essential (primary) hypertension; I49.1 Atrial premature depolarization; I49.3 Ventricular premature depolarization; E78.5 Hyperlipidemia, unspecified; Z85.820 Personal history of malignant melanoma of skin; Z79.82 Long term (current) use of aspirin; Z79.899 Other long term (current) drug therapy; R07.9 Chest pain, unspecified; R94.31 Abnormal electrocardiogram [ECG] [EKG]
CPT/HCPCS: 36415; 80048; 85027; 85610; 85730; 93459; 93567; 99152; 99153; J7040; Q9967; C1769

== ENCOUNTER → 2020-06-28 08:28 | Outpatient (CLI) | payer MEDICARE, OTHER, SELFPAY ==
[2020-06-18 09:01] VITALS: BMI 28.8
[2020-06-28 10:02] LABS: AST(SGOT) 18 U/L (15-37); Alanine Aminotransfer ALT/SGPT 33 U/L (16-61); Albumin, Serum 3.7 g/dL (3.2-5.0); Alkaline Phosphatase 66 U/L (45-117); Bilirubin, Direct 0.22 mg/dL (0.00-0.30); Cholesterol 126 mg/dL (200); Globulin 3.1 g/dL (2.2-4.2); High Density Lipoprotein 49 mg/dL; Protein, Total 6.8 g/dL (6.4-8.2); Triglycerides 69 mg/dL; Very Low Density Lipoprotein 14 mg/dL (5-40)
== END ==
PROVIDERS: PCP Family Medicine; Referring Provider Internal Medicine Cardiovascular Disease; Visit Provider Internal Medicine Cardiovascular Disease
DX: E78.00 Pure hypercholesterolemia, unspecified (principal); E78.5 Hyperlipidemia, unspecified
CPT/HCPCS: 36415; 80061; 80076

== ENCOUNTER → 2020-06-29 15:59 | Outpatient (CLI) | payer MEDICARE, OTHER, SELFPAY ==
[2020-06-18 09:01] VITALS: BMI 28.8
[2020-06-29 18:02] LABS: Absolute Neutrophil Count 4.5 X10^3/uL (2.0-7.7); Basophil# 0.06 X10^3/uL; Basophil% 0.8 % (0-1); Eosinophils% 2.5 % (0-5); Hematocrit 42.3 % (40-54); Hemoglobin 14.2 g/dL (13.0-16.5); Lymphocyte % 30.3 % (19-41); Mean Corp Hgb Conc 33.6 g/dL (32-36); Mean Corpuscular Hgb 30.9 pg (27.0-32.0); Mean Corpuscular Volume 92.2 fL (80-94); Mean Platelet Vol. 10.3 fl (6.2-12.0); Monocyte# 0.73 X10^3/uL; Monocyte% 9.2 % (0-10); NRBC Flagged by Analyzer 0 % (0-5); Neutrophil # 4.49 X10^3/uL (2.7-7.7); Neutrophil % 56.8 % (47-70); Platelet Count 229 K/mm3 (150-450); RBC Distribution Width CV 12.5 % (11.6-14.6); RBC Distribution Width SD 41.4 fl (35.1-43.9); Red Blood Count 4.59 M/mm3 (4.6-6.2); White Blood Count 7.9 K/mm3 (4.4-11.0)
[2020-06-29 18:29] LABS: ALB/GLOB Ratio 1.3 RATIO (0.9-2.4); AST(SGOT) 19 U/L (15-37); Alanine Aminotransfer ALT/SGPT 34 U/L (16-61); Alkaline Phosphatase 68 U/L (45-117); Anion Gap 4 (5-15); BUN 16 mg/dL (7-18); BUN/Creat Ratio 13.6 RATIO (10-20); CRP < 2.90 mg/L (0.0-3.0); Calcium,Total 9.1 mg/dL (8.5-10.1); Chloride 108 mmol/L (98-107); Creatinine, Serum 1.18 mg/dL (0.70-1.30); EST Glomerular Filtration Rate 66 mL/min (>60); Est Glom Filt Rate - Afr Amer 79 mL/min (>60); Globulin 3.1 g/dL (2.2-4.2); Glucose 90 mg/dL (74-106); Potassium 4.7 mmol/L (3.5-5.1); Protein, Total 7.1 g/dL (6.4-8.2); Rheumatoid Factor < 10.0 IU/mL (<15); Sodium Level 139 mmol/L (136-145); Thyroid Stim Hormone (TSH) 3.22 uIU/mL (0.358-3.74)
[2020-06-29 18:44] LABS: Erythrocyte Sedimentation Rate 4 mm/hr (0-20)
[2020-07-01 13:45] LABS: ANTINUCLEAR ANTIBODIES DIRECT Negative (Negative)
== END ==
PROVIDERS: PCP Family Medicine; Referring Provider Family Medicine; Visit Provider Family Medicine
DX: R09.89 Other specified symptoms and signs involving the circulatory and respiratory systems (principal)
CPT/HCPCS: 36415; 80053; 84443; 85025; 85652; 86038; 86140; 86431

== ENCOUNTER → 2020-07-07 14:36 | Outpatient (CLI) | payer MEDICARE, OTHER, SELFPAY ==
[2020-06-18 09:01] VITALS: BMI 28.8
--- NOTE | 2020-07-07 14:39 | CT_ITS ---
STUDY: CT CHEST WITHOUT CONTRAST REASON FOR EXAM: Male, 64 years old. Chest congestion. Hypertension. RADIATION DOSAGE (If Supplied By Facility): CTDIvol = ( 16.8 ) mGy, DLP = ( 563.40 ) mGycm TECHNIQUE: Transaxial imaging was performed without the administration of intravenous contrast material. Coronal and sagittal reformatted images were created. Individualized dose optimization techniques were used for this CT. COMPARISON: Chest x-ray dated 03/19/20 FINDINGS: There are no pulmonary infiltrates or pleural effusions. There are no pulmonary nodules or masses. There is no pneumothorax. The patient is status post sternotomy and coronary artery bypass. The [place] coronary arteries are calcified. The heart and pericardium are within normal limits. There is no thoracic lymphadenopathy. There is no evidence of thoracic aortic aneurysm. Images through the upper abdomen demonstrate gallstones. There are no destructive osseous lesions. CT/Chest without Contrast IMPRESSION: Clear lungs. Coronary artery disease, status post sternotomy and coronary artery bypass. Gallstones. Electronically Signed: Smith Vickers, at 17:31 EDT Tel , Service support ,
== END ==
PROVIDERS: PCP Family Medicine; Referring Provider Family Medicine; Visit Provider Family Medicine
DX: R09.89 Other specified symptoms and signs involving the circulatory and respiratory systems (principal)
CPT/HCPCS: 71250

== ENCOUNTER → 2020-08-11 09:14 | Outpatient (CLI) | payer MEDICARE, OTHER, SELFPAY ==
[2020-06-18 09:01] VITALS: BMI 28.8
--- NOTE | 2020-08-11 12:58 | PFTCOMP_ITS ---
COMPLETE PULMONARY FUNCTION TEST INTERPRETATION Brief HPI: Patient is a 64 year old male, currently under the care of Dr. Bullock, who presents to [facility] for complete pulmonary function tests secondary to diagnosis of chest congestion. Respiratory therapist reports good effort and reproducible results. Interpretation: Forced expiration spirometry shows a mild large airways obstructive ventilatory defect with an FEV1 of 113% predicted. There is a significant bronchodilator response in FVC and FEV1 by strict ATS criteria. Spirograms are of good quality and plateau slowly, indicating slowly emptying areas of the lungs. The respiratory flow volume loop shows a normal pattern. Lung volumes by body plethysmography show a normal total lung capacity at 5.41 L, 89% predicted. All other lung volumes are within normal limits. Diffusion capacity by carbon monoxide is normal at 78% predicted. The airway resistance is normal. No previous pulmonary function tests were available for review. Impression: Fully reversible mild large airways obstructive ventilatory defect
== END ==
PROVIDERS: PCP Family Medicine; Referring Provider Family Medicine; Visit Provider Family Medicine
DX: R09.89 Other specified symptoms and signs involving the circulatory and respiratory systems (principal)
CPT/HCPCS: 94060; 94726; 94729

== ENCOUNTER → 2021-02-01 09:55 | Outpatient (CLI) | payer MEDICARE, OTHER, SELFPAY ==
[2020-11-29 10:45] VITALS: BMI 29.6
[2021-02-01 12:14] LABS: Absolute Lymphocyte Count 1.84 X10^3/uL (0.83-4.51); Absolute Neutrophil Count 4.7 X10^3/uL (2.0-7.7); Basophil# 0.05 X10^3/uL; Basophil% 0.7 % (0-1); Eosinophil# 0.28 X10^3/uL; Eosinophils% 3.8 % (0-5); Hematocrit 42.5 % (40-54); Hemoglobin 14.2 g/dL (13.0-16.5); Lymphocyte # 1.84 X10^3/ul (4.0); Lymphocyte % 24.7 % (19-41); Mean Corp Hgb Conc 33.4 g/dL (32-36); Mean Corpuscular Hgb 29.8 pg (27.0-32.0); Mean Corpuscular Volume 89.1 fL (80-94); Mean Platelet Vol. 10.4 fl (6.2-12.0); Monocyte# 0.53 X10^3/uL; Monocyte% 7.1 % (0-10); NRBC Flagged by Analyzer 0 % (0-5); Neutrophil # 4.73 X10^3/uL (2.7-7.7); Neutrophil % 63.6 % (47-70); Platelet Count 205 K/mm3 (150-450); RBC Distribution Width CV 12.4 % (11.6-14.6); RBC Distribution Width SD 40.6 fl (35.1-43.9); Red Blood Count 4.77 M/mm3 (4.6-6.2); White Blood Count 7.4 K/mm3 (4.4-11.0)
[2021-02-01 12:25] LABS: ALB/GLOB Ratio 1.3 RATIO (0.9-2.4); AST(SGOT) 24 U/L (15-37); Alanine Aminotransfer ALT/SGPT 47 U/L (16-61); Albumin, Serum 3.8 g/dL (3.2-5.0); Alkaline Phosphatase 78 U/L (45-117); Anion Gap 6 (5-15); BUN 13 mg/dL (7-18); BUN/Creat Ratio 12.4 RATIO (10-20); Calcium,Total 9.1 mg/dL (8.5-10.1); Chloride 111 mmol/L (98-107); Cholesterol 127 mg/dL (200); Creatinine, Serum 1.05 mg/dL (0.70-1.30); EST Glomerular Filtration Rate 75 mL/min (>60); Est Glom Filt Rate - Afr Amer 91 mL/min (>60); Glucose 98 mg/dL (74-106); High Density Lipoprotein 51 mg/dL; Potassium 4.1 mmol/L (3.5-5.1); Protein, Total 6.8 g/dL (6.4-8.2); Sodium Level 143 mmol/L (136-145); Triglycerides 62 mg/dL; Very Low Density Lipoprotein 12 mg/dL (5-40)
[2021-02-01 12:55] LABS: Hemoglobin A1c 5.1 % (3.8-5.6)
== END ==
PROVIDERS: PCP Family Medicine; Referring Provider Family Medicine; Visit Provider Family Medicine
DX: I25.10 Atherosclerotic heart disease of native coronary artery without angina pectoris (principal); R73.09 Other abnormal glucose; I10 Essential (primary) hypertension
CPT/HCPCS: 36415; 80053; 80061; 83036; 85025

== ENCOUNTER → 2021-02-03 11:04 | Outpatient (CLI) | payer MEDICARE, OTHER, SELFPAY ==
[2020-11-29 10:45] VITALS: BMI 29.6
[2021-02-03 12:46] LABS: Microalbumin,Random Urine 17.7 mg/L (NO RANGE EST.); Microalbumin:Creatinine Ratio 8.2 mg/g CRE (<30 mg/g CRE)
== END ==
PROVIDERS: PCP Family Medicine; Referring Provider Family Medicine; Visit Provider Family Medicine
DX: I10 Essential (primary) hypertension (principal)
CPT/HCPCS: 82043; 82570

== ENCOUNTER → 2021-07-21 10:26 | Outpatient (CLI) | payer MEDICARE, OTHER, SELFPAY ==
[2021-07-21 12:36] LABS: Absolute Lymphocyte Count 1.92 X10^3/uL (0.83-4.51); Absolute Neutrophil Count 3.9 X10^3/uL (2.0-7.7); Basophil# 0.06 X10^3/uL; Basophil% 0.9 % (0-1); Eosinophil# 0.23 X10^3/uL; Eosinophils% 3.4 % (0-5); Hematocrit 39.4 % (40-54); Hemoglobin 13.5 g/dL (13.0-16.5); Lymphocyte # 1.92 X10^3/ul (0.83-4.51); Mean Corp Hgb Conc 34.3 g/dL (32-36); Mean Corpuscular Hgb 30.5 pg (27.0-32.0); Mean Corpuscular Volume 88.9 fL (80-94); Monocyte# 0.69 X10^3/uL; Monocyte% 10.1 % (0-10); NRBC Flagged by Analyzer 0 % (0-5); Neutrophil # 3.93 X10^3/uL (2.7-7.7); Neutrophil % 57.2 % (47-70); Platelet Count 219 K/mm3 (150-450); RBC Distribution Width CV 12.6 % (11.6-14.6); RBC Distribution Width SD 41.8 fl (35.1-43.9); Red Blood Count 4.43 M/mm3 (4.6-6.2); White Blood Count 6.9 K/mm3 (4.4-11.0)
[2021-07-21 12:50] LABS: ALB/GLOB Ratio 1.2 RATIO (0.9-2.4); AST(SGOT) 33 U/L (15-37); Alanine Aminotransfer ALT/SGPT 54 U/L (16-61); Albumin, Serum 3.6 g/dL (3.2-5.0); Alkaline Phosphatase 76 U/L (45-117); Anion Gap 4 (5-15); BUN 11 mg/dL (7-18); BUN/Creat Ratio 11.8 RATIO (10-20); Calcium,Total 8.8 mg/dL (8.5-10.1); Chloride 109 mmol/L (98-107); Creatinine, Serum 0.94 mg/dL (0.70-1.30); EST Glomerular Filtration Rate 85 mL/min (>60); Est Glom Filt Rate - Afr Amer 103 mL/min (>60); Glucose 96 mg/dL (74-106); Potassium 4.3 mmol/L (3.5-5.1); Protein, Total 6.6 g/dL (6.4-8.2); Sodium Level 140 mmol/L (136-145); Uric Acid 6.1 mg/dL (3.5-7.2)
== END ==
PROVIDERS: PCP Family Medicine; Visit Provider Family Medicine
DX: N20.0 Calculus of kidney (principal)
CPT/HCPCS: 36415; 80053; 84550; 85025

== ENCOUNTER → 2021-07-23 10:13 | Outpatient (CLI) | payer MEDICARE, OTHER, SELFPAY ==
--- NOTE | 2021-07-23 10:15 | US_ITS ---
EXAM: US ABDOMEN COMPLETE CLINICAL INDICATION: hx nephrolithiasis and gallstones -- hematuria TECHNIQUE: Real-time ultrasound of the abdomen with image documentation. This report was created using [employer] report generation technology. COMPARISON: None. FINDINGS: LIVER: Unremarkable. There is normal echotexture. No focal hepatic lesion. No intrahepatic biliary ductal dilation. GALLBLADDER: Multiple gallstones. No gallbladder wall thickening is demonstrated. No pericholecystic fluid. Negative sonographic Giron''s sign. COMMON BILE DUCT: Unremarkable as visualized. The proximal common bile duct is within normal limits for the patient''s age. PANCREAS: Unremarkable as visualized. No focal abnormality is demonstrated in the pancreas. No pancreatic ductal dilatation. KIDNEYS: Simple right renal cyst measures 2.2 cm. No required imaging follow-up needed given high likelihood of benign nature. 11 mm shadowing right renal calculus. Shadowing calculus of the inferior left kidney measures 6 mm. Calculus of the central left kidney measures 8 mm. There is no hydronephrosis. SPLEEN: Unremarkable. The spleen is normal in size and homogeneous in echotexture. AORTA: Unremarkable. Submitted longitudinal images of the intra-abdominal aorta demonstrate no gross abnormalities and are unremarkable. INFERIOR VENA CAVA: Unremarkable. The IVC is patent. FREE FLUID: There is no free fluid. US/Abdomen Complete IMPRESSION: 1. Bilateral nephrolithiasis including possible left renal pelvis/UPJ calculus. No hydronephrosis. 2. Cholelithiasis. No sonographic evidence of acute cholecystitis or biliary obstruction. Electronically Signed: Daniele Escobar MD ([place]) at 15:09 EDT , Service support ,
== END ==
PROVIDERS: PCP Family Medicine; Referring Provider Family Medicine; Visit Provider Family Medicine
DX: N20.0 Calculus of kidney (principal)
CPT/HCPCS: 76700

== ENCOUNTER → 2021-07-29 | Outpatient (CLI) | payer MEDICARE, OTHER, SELFPAY | END | disposition home or self-care (01) | LOC: LABSPEC 13:46 | PROVIDERS: PCP Family Medicine; Referring Provider Family Medicine; Visit Provider Family Medicine | DX: Z20.822 Contact with and (suspected) exposure to COVID-19 (principal) | CPT/HCPCS: 87635; U0005; U0003 ==

== ENCOUNTER → 2021-08-15 | Outpatient (CLI) | payer MEDICARE, OTHER, SELFPAY | END | disposition home or self-care (01) | LOC: LABSPEC 08-16 08:53 | PROVIDERS: PCP Family Medicine; Referring Provider Family Medicine; Visit Provider Family Medicine | DX: Z20.822 Contact with and (suspected) exposure to COVID-19 (principal) | CPT/HCPCS: 87635; U0005; U0003 ==

== ENCOUNTER → 2021-08-30 16:37 | Outpatient (CLI) | payer MEDICARE, OTHER, SELFPAY | PROVIDERS: PCP Family Medicine; Visit Provider Urology | DX: Z12.5 Encounter for screening for malignant neoplasm of prostate (principal) | CPT/HCPCS: 36415; 84153; G0103 ==

== ENCOUNTER → 2021-09-03 07:40 | Outpatient (CLI) | payer MEDICARE, OTHER, SELFPAY ==
--- NOTE | 2021-09-03 07:43 | CT_ITS ---
STUDY: CT ABDOMEN AND PELVIS WITHOUT CONTRAST REASON FOR EXAM: Male, 65 years old. HX KIDNEY STONES RADIATION DOSAGE (If Supplied By Facility): CTDIvol = ( 8.73 ) mGy, DLP = ( 464.70 ) mGycm TECHNIQUE: Transaxial images were obtained from the dome of the diaphragm to the symphysis pubis without oral contrast, and without intravenous contrast. Sagittal and coronal images were reconstructed. Individualized dose optimization techniques were used for this CT. COMPARISON: 06/13/2013 FINDINGS: The visualized lung bases are unremarkable. The visualized portions of the heart are within normal limits. Normal liver. There are multiple gallstones. Normal spleen. Normal pancreas. Normal bilateral adrenal glands. Multiple bilateral nonobstructing renal stones. 10 mm stone within the left renal pelvis with mild hydronephrosis. No ureteral stone or ureteral dilatation. Normal visualized stomach. Normal small intestine. There are multiple colonic diverticula consistent with diverticulosis. The appendix is visualized and appears normal. Normal abdominal aorta. Normal inferior vena cava. Normal retroperitoneum. Normal urinary bladder. There are prostatic calcifications. There is a small umbilical hernia containing fat. Normal osseous structures. CT/Abdomen/Pelvis without Cont IMPRESSION: 1. 10 mm stone in the left renal pelvis with mild hydronephrosis. 2. Multiple bilateral nonobstructing renal stones. 3. Cholelithiasis. 4. Sigmoid diverticulosis without diverticulitis. Electronically Signed: Vernon Flores MD at 11:50 EDT Tel , Service support ,
== END ==
PROVIDERS: PCP Family Medicine; Referring Provider Urology; Visit Provider Urology
DX: N20.0 Calculus of kidney (principal); Z87.442 Personal history of urinary calculi
CPT/HCPCS: 74176

== ENCOUNTER 2021-10-07 05:52 | Day surgery (SDC) | payer MEDICARE, OTHER, SELFPAY ==
[2021-10-07] VITALS (9 sets, daily range): BP systolic 140–183; BP diastolic 86–98; PULSE 60–95; RESP 16; TEMP 35.6–36.8; O2SAT 92–100; BMI 28.1
--- NOTE | 2021-10-07 06:03 | RAD_ITS ---
EXAM: XR ABDOMEN, 1 VIEW : 1955 CLINICAL INDICATION: Preop TECHNIQUE: Frontal supine view of the abdomen/pelvis. This report was created using [employer] report generation technology. COMPARISON: CT from 09/03/21 FINDINGS: LOWER THORAX: No acute pathology. GASTROINTESTINAL TRACT: Unremarkable. Non-obstructive. No bowel or stomach distention. ORGANS: Multiple gallstones in the right upper quadrant measuring up to 1.5 cm. No organomegaly. BONES/JOINTS: No acute pathology. SOFT TISSUES: No acute pathology. OTHER FINDINGS: Large calcification in the expected location of the left UPJ measuring 1.6 cm. RAD/Abdomen Single View IMPRESSION: 1. Multiple gallstones in the right upper quadrant measuring up to 1.5 cm. 2. Large calcification in the expected location of the left UPJ measuring 1.6 cm. at 0708 Reported and signed by: Pal Aguirre MD Electronically Signed: Pal Aguirre MD at 7:07 EST Tel , Service support ,
[2021-10-07] MEDS: Lactated Ringers 1,000 ML 15 ML IV (06:49)
[2021-10-07] MEDS: Cefazolin 2 GM in 0.9% Normal Saline 100 ML IV (07:42)
--- NOTE | 2021-10-07 07:43 | HP.PCM_ITS ---
HPI - General HPI Narrative APRIL FERRARO, is a 66 M who presents for treatment of his left kidney stone and stent placement [facility] Medical History (Updated 10/07/21 @ 07:[address] Filemon Nazario MD) Alcohol use Asthma Atherosclerotic heart disease of [place] coronary artery without angina pectoris Chest pain Essential hypertension History of irregular heartbeat History of left heart catheterization (LHC) (~05/11/20) Hyperlipidemia Kidney stone Melanoma Premature atrial contractions Premature ventricular contraction Wears glasses Home Medications aspirin 81 mg tablet,delayed release 81 mg PO QDAY 05/31/18 [History Last Taken 10/03/21] sgpcitzj-shh-lobhb acid 0.4 mg-lycopene 300 mcg-lutein 250 mcg tablet 1 tab PO QDAY 05/31/18 [History Last Taken Unknown] nitroglycerin 0.4 mg sublingual tablet 0.4 mg SUBLINGUAL ONCE #25 tab 03/19/20 [Rx Last Taken Unknown] irbesartan 75 mg tablet 37.5 mg PO DAILY tab 07/05/20 [History Last Taken 10/07/21] zinc acetate 25 mg (zinc) capsule 25 mg PO DAILY 08/26/20 [History Last Taken Unknown] omega-3 fatty acids 1,000 mg capsule 1,000 mg PO DAILY 02/21/21 [History Last Taken 10/03/21] atorvastatin 40 mg tablet 40 mg PO QDAY #90 tab 04/06/21 [Rx Last Taken Unknown] albuterol sulfate 90 mcg/actuation aerosol inhaler 2 puff INHALATION Q6H PRN #18 g 08/02/21 [Rx Last Taken 10/07/21] Otezla 30 mg PO BID 09/28/21 [History Last Taken Unknown] ciprofloxacin HCl 500 mg PO BID #6 tab 10/07/21 [Rx Last Taken Unknown] docusate sodium [Colace] 100 mg PO BID #20 cap 10/07/21 [Rx Last Taken Unknown] oxycodone-acetaminophen [Endocet] 1 tab PO Q4H PRN 7 Days #14 tab 10/07/21 [Rx Last Taken Unknown] Allergy/AdvReac Type Severity Reaction Status Date / Time No Known Allergies Allergy Verified 08/08/21 10:15 Family History (Updated 08/08/21 @ 10:18 by Marcin Candelario NP, DIRECTOR OF STRATEGIC ALLIANCES-C) Father , Age 70 Cancer brain Daughter Hypertension Other Heart disease Surgical History (Updated 09/28/21 @ 15:30 by Mila Valverde) Aortocoronary bypass status (~06/08/11) History of cystoscopy History of thoracentesis Hx of lymph node biopsy Social History (Reviewed 08/08/21 @ 10:18 by Marcin Candelario DIRECTOR OF STRATEGIC ALLIANCES, DIRECTOR OF STRATEGIC ALLIANCES-C) Smoking Status: Never smoker alcohol intake: current alcohol intake frequency: a few times a week details: occasional caffeine: Yes Type: coffee Number of servings: 3 Vital Signs Vital Signs Vital Signs: 10/07/21 06:39 Temperature 98.3 F Temperature Source Temporal Pulse Rate 63 Respiratory Rate 16 Respiratory Pattern Normal Blood Pressure 144/92 H Blood Pressure Mean 109 Blood Pressure Source Monitor Blood Pressure Position Semi-Fowlers Blood Pressure Location Right Arm Pulse Ox 96 Oxygen Delivery Method Room Air Weight Weight: 84.1 kg Body Mass Index (BMI) 28.1 Results Radiology Impression KUB X-Ray 10/07/21 06:03 IMPRESSION: 1. Multiple gallstones in the right upper quadrant measuring up to 1.5 cm. 2. Large calcification in the expected location of the left UPJ measuring 1.6 cm. at 0708 Reported and signed by: Pal Aguirre MD Electronically Signed: Pal Aguirre MD at 7:07 EST Tel , Service support ,
--- NOTE | 2021-10-07 07:43 | PCM.DC ---
Discharge Instructions Diet Discharge Diet: No restrictions Activity Discharge Activity: Return to Normal Activity and May Not Drive (while taking narcotic pain medications.) Dressing / Incision Call your doctor if you observe: Fever of 101 or Higher Follow Up Care Please Follow Up With: Filemon Nazario MD When: Call [phone] for an appointment Test Results: Test results from this visit will be discussed in further detail at your follow-up appointment, if applicable. Discharge Plan Admission Primary Reason for Your Visit: left kidney stone, shockwave treatment Attending Provider: Filemon Nazario Primary Care Provider: Sukh Bullock Instructions Patient Instructions: Shock Wave Lithotripsy Discharge Orders/Prescriptions Prescriptions: New oxycodone-acetaminophen [Endocet] 5-325 mg tablet 1 tab PO Q4H PRN (Reason: pain) 7 Days Qty: 14 RF: 0 docusate sodium [Colace] 100 mg capsule 100 mg PO BID Qty: 20 RF: 0 ciprofloxacin HCl 500 mg tablet 500 mg PO BID Qty: 6 RF: 0 Continued aspirin 81 mg tablet,delayed release (DR/EC) 81 mg PO QDAY RF: 0 yprfqpmb-dtp-YM-lycopen-lutein [Centrum Silver] 0.4-300-250 mg-mcg-mcg tablet 1 tab PO QDAY RF: 0 nitroglycerin 0.4 mg tablet, sublingual 0.4 mg SUBLINGUAL ONCE Qty: 25 RF: 3 omega-3 fatty acids [Fish Oil Concentrate] 1,000 mg capsule 1,000 mg PO DAILY RF: 0 zinc acetate 25 mg (zinc) capsule 25 mg (zinc) capsule 25 mg PO DAILY RF: 0 Otezla 30 mg Tablet 30 mg PO BID RF: 0 irbesartan [Avapro] 75 mg tablet 37.5 mg PO DAILY RF: 0 atorvastatin 40 mg tablet 40 mg PO QDAY Qty: 90 RF: 3 albuterol sulfate 90 mcg/actuation HFA aerosol inhaler 2 puff INHALATION Q6H PRN (Reason: shortness of breath or wheezing) Qty: 18 RF: 6 Referrals / Follow Up: Sukh Bullock MD [Primary Care Provider] - Filemon Nazario MD [STAFF PHYSICIAN] - Disposition Disposition (needs filled in before D/C Order can be placed): Home, Self Care
--- NOTE | 2021-10-07 08:38 | PCM.OPRPT ---
Report of Operation Date of Procedure: 10/07/21 Pre-Operative Diagnosis: Left renal calculi Post-Operative Diagnosis: The same Surgery/Procedure Performed:: Left extracorporeal shockwave lithotripsy cystoscopy left stent placement Description of Surgical Findings:: Patient presents to the hospital for treatment of a kidney stone with shockwave lithotripsy. In the preoperative area and x-ray was done to confirm the location of the stone. The x-ray was reviewed and the stone location was reviewed. In the preoperative setting I spoke with the patient regarding the treatment of the stone how the treatment would be conducted and the expectations after surgery. The patient understands there is a risk of bleeding and infection. Also discussed the very rare risk of hematoma or damage to the kidney. We also discussed the risk that the shockwave machine will fail to break the stone adequately and that the patient may need other surgical procedures. We also discussed the possibility that the patient may need a stent after the procedure. After reviewing the procedure with the patient, the patient is signed the consent form all the patient's questions were addressed and was taken back to the operating room for treatment of a kidney stone. Patient was taken back to the operating room, patient was identified by the nursing staff, we identified the side of the treatment and the patient side of treatment had been marked by my initials. The patient underwent general anesthetic and was placed supine on the lithotripter table. We then used fluoroscopy to identify the stone on the left side. Using a 21 [place] rigid cystourethroscope the entire length of the urethra was normal then went into the bladder. Identified the trigone the left and right ureteral orifice. I then cannulated the left orifice and advanced a wire up into the kidney. I then backloaded a 5 [place] open ended catheter over the wire and injected contrast to delineate the anatomy. After the retrograde was performed I then used fluoroscopic images and guidance to advanced a wire up into the kidney and over the 0.038 glidewire I advanced a 6 [place] by 26 cm double pigtail stent. I then pulled the 0.038 Glidewire off and the stent coiled in the kidney bladder good position. The bladder was then drained. We confirmed the position of the stent by fluoroscopy We then positioned the patient under the lithotripter and we used triangulation technique to identify the location of the stone and then we made sure that the stone was engaged in the F2 focal point of F2 Donier lithoprior machine. Once the patient was positioned appropriately and the stone was identified and placed in the F2 focal point of the lithotripter machine we then proceeded with shockwave lithotripsy. In the beginning the shockwave was delivered at a rate of 90 shocks per minute, we monitor the EKG for any ectopy. The power was slowly increased to 5 kV and subsequently at the 7 kV. We then proceeded with the treatment we move the therapy had around during the treatment to make sure the stone stayed in the F2 focal point during the entire treatment and after 3000 shockwaves were delivered to the stone under fluoroscopic guidance the treatment was completed. The patient was given instructions to call the office to make an a follow-up appointment with an xray to evaluate the success of the treatment, pateint understands that its possible the stones may need another procedure.At this point the patient's anesthetic was reversed patient was extubated and taken back to the PACU in stable condition. Surgeon: destiny Type of Anesthesia: General Drains: stent left side Admit VTE Documentation VTE Present on Admission: No VTE Mechan Device Prophylaxis: SCD's VTE Pharm Prophylaxis ordered?: No
[2021-10-07] MEDS: Acetaminophen 325 MG Tablet PO (10:44)
[2021-10-07] MEDS: oxyCODONE 5 MG Tablet PO (10:44)
== END 2021-10-07 11:37 | disposition home or self-care (01) ==
LOC: SDC 05:53 → AC 05:54
PROVIDERS: PCP Family Medicine; Referring Provider Urology; Visit Provider Urology
PROC: (CPT 50590; principal; 2021-10-07 07:20)
DX: N20.0 Calculus of kidney (principal); I10 Essential (primary) hypertension; I25.10 Atherosclerotic heart disease of native coronary artery without angina pectoris; J45.909 Unspecified asthma, uncomplicated; E78.5 Hyperlipidemia, unspecified; Z95.1 Presence of aortocoronary bypass graft; Z79.82 Long term (current) use of aspirin; Z79.899 Other long term (current) drug therapy
CPT/HCPCS: 00873; 50590; 52332; 74018; J7120; C1769; C2617; J2405

== ENCOUNTER → 2021-10-13 13:28 | Outpatient (CLI) | payer MEDICARE, OTHER, SELFPAY ==
--- NOTE | 2021-10-13 13:40 | RAD_ITS ---
STUDY: X-RAY - ABDOMEN/PELVIS REASON FOR EXAM: Male, 66 years old. Flank pain TECHNIQUE: Two AP supine views of the abdomen and pelvis. COMPARISON: 10/07/2021 FINDINGS: Lung bases are unremarkable. Since the previous study, a left-sided JJ stent has been placed. No demonstrated calcifications overlying the left renal shadow, the pelvic imaging shows evidence of multiple calcifications along the distal stent suggesting they are at or near the left UVJ. Other calcifications within the pelvis are likely within the prostate, or bladder There is an unremarkable bowel gas pattern. There is no demonstrated free abdominal air. There are multiple gallstones The visualized liver, spleen and kidneys are grossly normal in size and morphology. Normal soft tissue structures. There are diffuse degenerative changes of the visualized lumbar spine. RAD/Abdomen Single View IMPRESSION: Left-sided JJ stent noted, there are clustered calcifications along the distal aspect of the stent suggesting air and or near the left UVJ Degenerative bony changes Cholelithiasis Electronically Signed: Claude Abbott MD at 16:59 EST , Service support ,
== END ==
PROVIDERS: PCP Family Medicine; Referring Provider Urology; Visit Provider Urology
DX: N20.0 Calculus of kidney (principal)
CPT/HCPCS: 74018

== ENCOUNTER 2022-02-28 06:41 | Outpatient (CLI) | payer MEDICARE, OTHER, SELFPAY ==
--- NOTE | 2022-02-28 13:58 | STRESSREP ---
Stress Test Report Date: 02-28-2022 Procedure: Exercise tolerance test/imaging study Indications: Chest pain; CAD; CABG Consent: Per the patient Procedure: The patient exercised on a Chano protocol for 9 minutes completing Stage III achieving a peak heart rate of 160 bpm (105% predicted maximal heart rate) with a peak blood pressure 202/92 mmHg and a peak MET capacity of 10 METs. The baseline ECG demonstrated sinus bradycardia. The peak exercise ECG demonstrated approximately 1 mm of horizontal/downsloping ST segment depression in leads II, 3, aVF, and V3 through V6 with gradual resolution towards baseline in recovery. There was a rare PAC/PVC during exercise and recovery. Blood pressure response: Resting hypertension-exaggerated response. The functional capacity was considered good. There was no complaint of chest discomfort during exercise or recovery. The examination was discontinued secondary to dyspnea. Impression: 1. Technically adequate (percent predicted maximal heart rate greater than 85%) exercise tolerance test 2. Peak exercise ECG with approximately 1 mm of horizontal/downsloping ST segment depression in leads II, III, aVF, and V3 through V6 with gradual resolution towards baseline in recovery 3. There was a rare PAC/PVC during exercise and recovery 4. Blood pressure response: Resting hypertension-exaggerated response. 5. Nuclear images pending Myocardial perfusion imaging study: Technique: The patient was injected with 11.1 mCi of technetium 99m Cardiolite and subsequently rest SPECT Cardiolite nuclear imaging was obtained in the horizontal long, vertical long, and short axis views. The patient exercised on a Chano protocol for 9 minutes completing Stage III achieving a peak heart rate of 160 bpm (105% predicted maximal heart rate) with a peak blood pressure 202/92 mmHg and a peak MET capacity of 10 METs. The patient was injected with 33.6 mCi of technetium 99m Cardiolite and subsequently stress SPECT Cardiolite nuclear imaging was obtained in the horizontal long, vertical long, and short axis views. A gated Cardiolite study at peak stress was obtained. Interpretation: Rest and stress SPECT Cardiolite nuclear imaging status post realignment, normalization, and attenuation correction, demonstrates the appearance of relative uniform tracer uptake and myocardial perfusion appearing within normal limits. There are no myocardial perfusion deficits on the stress polar map images. There is end systolic thickening and brightening. The gated Cardiolite study demonstrates myocardial thickening and inward wall motion. The reported LVEF is 58%. Impression: 1. Rest and stress SPECT Cardiolite nuclear imaging demonstrate relative uniform tracer uptake and myocardial perfusion appearing within normal limits. 2. The gated Cardiolite study reports an LVEF of 58%. This note was generated with [employer] software. It may contain incorrect words, spelling, and punctuation that were not noted in checking the note before signing.
== END 2022-02-28 23:59 | disposition home or self-care (01) ==
LOC: CVS 06:42
PROVIDERS: PCP Family Medicine; Visit Provider Nurse Practitioner Family
DX: R07.9 Chest pain, unspecified (principal); R53.83 Other fatigue; Z95.1 Presence of aortocoronary bypass graft
CPT/HCPCS: 78452; 93017; A9500; A4216

== ENCOUNTER → 2022-04-07 | Outpatient (CLI) | payer MEDICARE, OTHER, SELFPAY ==
--- NOTE | 2022-04-07 11:32 | RAD_ITS ---
STUDY: X-RAY CHEST REASON FOR EXAM: Male, 66 years old. LOWER RESPIRATORY TRACT INFECTION TECHNIQUE: 2 views COMPARISON: None. FINDINGS: Cardiomediastinal silhouette is unremarkable. Costophrenic angles are sharp. Lungs are hyperinflated but clear. The trachea is midline. There is no pneumothorax. Sternotomy wires are grossly intact. RAD/Chest PA and Lateral IMPRESSION: No acute cardiopulmonary process. Electronically Signed: Alex Odom MD at 17:16 EDT ,
[2022-04-07 15:23] LABS: Absolute Lymphocyte Count 2.12 X10^3/uL (0.83-4.51); Absolute Neutrophil Count 4.7 X10^3/uL (2.0-7.7); Basophil# 0.04 X10^3/uL; Basophil% 0.5 % (0-1); Eosinophil# 0.21 X10^3/uL; Eosinophils% 2.7 % (0-5); Hematocrit 42.2 % (40-54); Hemoglobin 14.1 g/dL (13.0-16.5); Lymphocyte # 2.12 X10^3/ul (0.83-4.51); Lymphocyte % 27.3 % (19-41); Mean Corp Hgb Conc 33.4 g/dL (32-36); Mean Corpuscular Hgb 30.3 pg (27.0-32.0); Mean Corpuscular Volume 90.6 fL (80-94); Mean Platelet Vol. 10.3 fl (6.2-12.0); Monocyte# 0.68 X10^3/uL; Monocyte% 8.8 % (0-10); NRBC Flagged by Analyzer 0 % (0-5); Neutrophil # 4.69 X10^3/uL (2.7-7.7); Neutrophil % 60.3 % (47-70); Platelet Count 234 K/mm3 (150-450); RBC Distribution Width CV 12.6 % (11.6-14.6); RBC Distribution Width SD 41.3 fl (35.1-43.9); Red Blood Count 4.66 M/mm3 (4.6-6.2); White Blood Count 7.8 K/mm3 (4.4-11.0)
[2022-04-07 16:16] LABS: BUN 18 mg/dL (7-18); Creatinine, Serum 1.17 mg/dL (0.70-1.30); Glucose 96 mg/dL (74-106)
[2022-04-07 16:17] LABS: ALB/GLOB Ratio 1.1 RATIO (0.9-2.4); AST(SGOT) 23 U/L (15-37); Alanine Aminotransfer ALT/SGPT 64 U/L (16-61); Albumin, Serum 3.9 g/dL (3.2-5.0); Alkaline Phosphatase 93 U/L (45-117); Anion Gap 5 (5-15); BUN/Creat Ratio 15.4 RATIO (10-20); Calcium,Total 9.5 mg/dL (8.5-10.1); Chloride 108 mmol/L (98-107); EST Glomerular Filtration Rate 66 mL/min (>60); Est Glom Filt Rate - Afr Amer 80 mL/min (>60); Globulin 3.4 g/dL (2.2-4.2); Potassium 4.5 mmol/L (3.5-5.1); Protein, Total 7.3 g/dL (6.4-8.2); Sodium Level 140 mmol/L (136-145)
== END | disposition home or self-care (01) ==
PROVIDERS: PCP Family Medicine; Referring Provider Family Medicine; Visit Provider Family Medicine
DX: J06.9 Acute upper respiratory infection, unspecified (principal); J22 Unspecified acute lower respiratory infection
CPT/HCPCS: 36415; 71046; 80053; 85025; 87635; U0003; U0005

== ENCOUNTER → 2022-09-13 | Outpatient (CLI) | payer MEDICARE, OTHER, SELFPAY ==
[2022-09-13 11:55] LABS: ALB/GLOB Ratio 1.1 RATIO (0.9-2.4); AST(SGOT) 12 U/L (15-37); Alanine Aminotransfer ALT/SGPT 31 U/L (16-61); Albumin, Serum 3.6 g/dL (3.2-5.0); Alkaline Phosphatase 70 U/L (45-117); Anion Gap 5 (5-15); BUN 13 mg/dL (7-18); BUN/Creat Ratio 10.5 RATIO (10-20); Bilirubin, Direct 0.31 mg/dL (0.00-0.30); Calcium,Total 9.2 mg/dL (8.5-10.1); Chloride 110 mmol/L (98-107); Cholesterol 140 mg/dL (200); Creatinine, Serum 1.24 mg/dL (0.70-1.30); EST Glomerular Filtration Rate 61 mL/min (>60); Est Glom Filt Rate - Afr Amer 74 mL/min (>60); Globulin 3.3 g/dL (2.2-4.2); Glucose 95 mg/dL (74-106); High Density Lipoprotein 56 mg/dL; PSA,Total - Annual Screen 1.31 ng/mL (0.00-4.00); Potassium 4.3 mmol/L (3.5-5.1); Protein, Total 6.9 g/dL (6.4-8.2); Sodium Level 142 mmol/L (136-145); Triglycerides 87 mg/dL; Very Low Density Lipoprotein 17 mg/dL (5-40)
== END | disposition home or self-care (01) ==
PROVIDERS: PCP Family Medicine; Referring Provider Family Medicine; Visit Provider Family Medicine
DX: Z12.5 Encounter for screening for malignant neoplasm of prostate (principal); I25.10 Atherosclerotic heart disease of native coronary artery without angina pectoris; E78.5 Hyperlipidemia, unspecified; R17 Unspecified jaundice
CPT/HCPCS: 36415; 80053; 80061; 82248; 84153; G0103

== ENCOUNTER 2023-04-04 17:42 | Observation (INO) | payer MEDICARE, OTHER, SELFPAY ==
[2023-04-04 17:43] VITALS: BP 165/88; PULSE 72; RESP 18; TEMP 36.6; O2SAT 99; BMI 26.5
[2023-04-04 18:30] LABS: Absolute Neutrophil Count 11.6 X10^3/uL (2.0-7.7); Basophil# 0.04 X10^3/uL; Basophil% 0.3 % (0-1); Eosinophil# 0.12 X10^3/uL; Eosinophils% 0.8 % (0-5); Hematocrit 41.4 % (40-54); Lymphocyte % 11.1 % (19-41); Mean Corp Hgb Conc 33.8 g/dL (32-36); Mean Corpuscular Hgb 30.2 pg (27.0-32.0); Mean Corpuscular Volume 89.4 fL (80-94); Mean Platelet Vol. 10.1 fl (6.2-12.0); Monocyte# 0.93 X10^3/uL; Monocyte% 6.5 % (0-10); NRBC Flagged by Analyzer 0 % (0-5); Neutrophil # 11.59 X10^3/uL (2.7-7.7); Neutrophil % 80.7 % (47-70); Platelet Count 200 K/mm3 (150-450); Red Blood Count 4.63 M/mm3 (4.6-6.2); White Blood Count 14.4 K/mm3 (4.4-11.0)
--- NOTE | 2023-04-04 18:34 | CT_ITS ---
STUDY: CT ABDOMEN AND PELVIS WITH CONTRAST REASON FOR EXAM: Male, 67 years old. RLQ abdominal pain RADIATION DOSAGE (If Supplied By Facility): CTDIvol = ( 15.88 ) mGy, DLP = ( 993.84 ) mGycm TECHNIQUE: Transaxial images were obtained from the dome of the diaphragm to the symphysis pubis without oral contrast. IV 100mL Isovue-[id number] was administered. Sagittal and coronal images were reconstructed. Individualized dose optimization techniques were used for this CT. COMPARISON: 09/03/2021. FINDINGS: The visualized lung bases are unremarkable. The visualized portions of the heart are within normal limits. Normal liver with stable subcentimeter cysts. There are multiple gallstones. Normal spleen. Normal pancreas. Normal bilateral adrenal glands. Right kidney shows moderate hydronephrosis with perinephric stranding and hydronephrosis of the proximal right ureter down to 2 separate adjacent proximal right ureteral stone, one measuring 6 mm and the other 7 mm greatest dimension. These can be seen on coronal image 54. Additional 3 mm nonobstructing stone seen in the right lower pole. Stable 1.6 cm right lower pole cyst. Left kidney shows several centimeter or smaller cysts. No left renal stones or acute abnormality. Evaluation of the GI tract is limited by absence of oral contrast. Cannot exclude stomach wall thickening. No dilated loops of bowel or evidence for obstruction. Cannot exclude segmental thickening of the velasquez of the small or large bowel. Cannot exclude enteritis or colitis. Moderate diffuse fecal retention. Diverticulosis without definite diverticulitis. Appendix within normal limits. Normal abdominal aorta. Normal inferior vena cava. Normal retroperitoneum. Nondistended urinary bladder. Bladder wall thickening is not excluded. There are prostatic calcifications. Normal abdominal wall. There are diffuse degenerative changes of the visualized lumbar spine. CT/Abdomen/Pelvis W IV Cont ONLY IMPRESSION: Obstruction of the right kidney and proximal ureter from 2 adjacent proximal ureteral stones as much as 7 mm across. No other definite acute or significant abnormality seen. Electronically Signed: Mauro Hodges MD at 19:36 EDT ,
--- NOTE | 2023-04-04 18:38 | ED.VIS.GI ---
HPI HPI - GI History of Present Illness Chief Complaint: Flank Pain Narrative Narrative: 67-year-old male with history of kidney stones presented with left-sided flank pain and right lower quadrant pain that started yesterday. The pain has been progressively getting worse. The patient states that he had some leftover Percocet from his last kidney stone and the Percocet is not helping his pain. He has been nauseous but only vomited 1 time when he arrived to the emergency room. He does not have a fever and has not had one that he knows of. He has not checked. He states he has diminished urinary output denies dysuria or hematuria. He called the urologist office yesterday to set up appointment for tomorrow but does not believe he can wait due to pain. [facility] Medical History Alcohol use Asthma Atherosclerotic heart disease of [place] coronary artery without angina pectoris Chest pain Essential hypertension History of irregular heartbeat Hyperlipidemia Kidney stone Kidney stone Melanoma Premature atrial contractions Premature ventricular contraction Wears glasses Home Medications aspirin 81 mg tablet,delayed release 81 mg PO QDAY 05/31/18 [History Last Taken 10/03/21] zinc acetate 25 mg (zinc) capsule 25 mg PO DAILY 08/26/20 [History Last Taken Unknown] omega-3 fatty acids 1,000 mg capsule (Fish Oil Concentrate) 1,000 mg PO DAILY 02/21/21 [History Last Taken 10/03/21] albuterol sulfate 90 mcg/actuation aerosol inhaler 2 puff inhalation Q6H PRN shortness of breath or wheezing #18 grams 08/02/21 [Rx Last Taken 10/07/21] multivitamin 1 tab PO DAILY 02/20/22 [History Last Taken Unknown] atorvastatin 40 mg tablet 40 mg PO QDAY #90 tabs 05/01/22 [Rx Last Taken Unknown] apremilast 30 mg tablet (Otezla) 30 mg PO DAILY 08/21/22 [History Last Taken Unknown] amlodipine 2.5 mg tablet 2.5 mg PO DAILY #30 tabs 03/01/23 [Rx Last Taken Unknown] fluticasone propionate 110 mcg/actuation HFA aerosol inhaler (Flovent HFA) 2 puff inhalation BID #12 grams 03/15/23 [Rx Last Taken Unknown] Allergy/AdvReac Type Severity Reaction Status Date / Time irbesartan Allergy Severe Headaches, Verified 04/04/23 17:43 GI symptoms isosorbide AdvReac Intermediate Headache Verified 04/04/23 17:43 Family History Father , Age 70 Cancer brain Daughter Hypertension Other Heart disease Surgical History Aortocoronary bypass status (~06/08/11) History of cystoscopy History of left heart catheterization (LHC) (~05/11/20) History of lithotripsy (09/2021) History of thoracentesis Hx of lymph node biopsy Social History Smoking Status: Never smoker alcohol intake: current alcohol intake frequency: a few times a week details: occasional caffeine: Yes Type: coffee Number of servings: 3 ROS ROS ED Constitutional Constitutional ED: Reports subjective; Denies chills ENT ENT ED: Denies rhinorrhea or sore throat Cardiovascular Cardiovascular: Denies chest pain or palpitations Respiratory/Chest Respiratory/Chest: Denies cough or dyspnea Gastrointestinal Gastrointestinal: Reports abdominal pain, nausea and vomiting; Denies constipation or diarrhea Genitourinary Genitourinary ED: Reports other Details: Decreased urinary ; Denies dysuria or hematuria Musculoskeletal Musculoskeletal: Denies arthralgias, myalgias or neck pain Integumentary Denies abscess or Abrasions Neurologic Neurologic: Denies headache(s) or paresthesias Psychiatric Psychiatric: Denies anxiety or depression EXAM Physical Exam Const Vital Signs: 04/04/23 17:43 Temperature 97.9 F Temperature Source Temporal Pulse Rate 72 Respiratory Rate 18 Blood Pressure 165/88 H Blood Pressure Mean 113 Pulse Ox 99 Oxygen Delivery Method Room Air Positive well nourished General Appearance ED: NAD HEENT Reports moist mucous membranes normocephalic and atraumatic Eyes PERRL and EOMs intact bilaterally General Eye ED: Negative for pale conjunctiva or scleral icterus Resp normal respiratory effort and clear to auscultation bilaterally Auscultation: Negative for rales, rhonchi or wheezes Cardio regular rate and regular rhythm GI Palpation: tender RLQ Back/Spine no CVA tenderness Neuro CN's II-XII intact bilaterally Sensorium / Orientation: alert Motor Exam: strength 5/5 throughout Psych mental status grossly normal MDM MDM MDM Narrative Medical decision making narrative: Patient presenting with right flank pain and right lower abdominal pain. He did not have any CVA tenderness on examination but he did have right lower quadrant tenderness. Differential includes appendicitis, UTI, pyelonephritis, diverticulitis. Obtained CBC to assess white blood cell count, hemoglobin, platelets, differential. BMP to assess renal function, electrolytes, glucose, anion gap. Urinalysis assess for UTI and hematuria. Patient medicated with morphine 4 mg IV and Zofran 4 mg IV. He was given a liter of normal saline. CBC shows a leukocytosis of 14.4. Hemoglobin macular stable platelets are normal. Creatinine is elevated today at 1.45. Patient was given additional liter of normal saline. Urinalysis obtained does not show any evidence of infection but does show occult blood. Given the leukocytosis I did obtain a CT with IV contrast to rule out appendicitis and his CT is interpreted as 2 adjacent stones in the right ureter causing 7 mm obstruction of the right ureter and hydronephrosis with hydroureter. Patient has now been medicated with Dilaudid as well. Given that he is already had outpatient treatment with oxycodone and was not doing well with this and he is already had morphine and Dilaudid in the ER I think he needs to be admitted. I spoke with Dr. Nazario who agreed to admit the patient. Patient counseled on all findings. Patient admitted in stable condition. Impression: 1. Leukocytosis 2. Elevated creatinine 3. 7 mm obstruction right ureter. 4. Right hydroureter and hydronephrosis 5. Nausea/vomit Lab Data Labs: Laboratory Results - last 24 hr 04/04/23 04/04/23 04/04/23 18:18 18:18 18:43 WBC 14.4 H RBC 4.63 Hgb 14.0 Hct 41.4 MCV 89.4 MCH 30.2 MCHC 33.8 RDW Std Deviation 39.0 RDW Coeff of Ru 12.0 Plt Count 200 MPV 10.1 Immature Gran % (Auto) 0.600 Neut % (Auto) 80.7 H Lymph % (Auto) 11.1 L [place] % (Auto) 6.5 Eos % (Auto) 0.8 Baso % (Auto) 0.3 Absolute Neuts (auto) 11.6 H Absolute Lymphs (auto) 1.60 Nucleated RBC % 0 Sodium 142 Potassium 3.8 Chloride 106 Carbon Dioxide 28.0 Anion Gap 8 BUN 15 Creatinine 1.45 H Estim Creat Clear Calc 48.08 Est GFR (MDRD) Af Amer 62 Est GFR (MDRD) Non-Af 51 L BUN/Creatinine Ratio 10.3 Glucose 128 H Calcium 9.7 Urine Color Yellow Urine Clarity Sl. Cloudy Urine pH 5.0 Ur Specific [place] 1.025 Urine Protein 30 H Urine Glucose (UA) Normal Urine Ketones 15 H Urine Occult Blood 250 H Urine Nitrite Negative Urine Bilirubin Negative Urine Urobilinogen 1 H Ur Leukocyte Esterase 25 H Urine RBC > 100 SEEN Urine WBC 0-5 SEEN Ur Squamous Epith Cells 0 SEEN Calcium Oxalate Crystal 1+ Urine Bacteria 0 SEEN Urine Mucus 0 SEEN Radiography Diagnostic Testing: Clinical Impression(s) from Imaging Studies Abdomen/Pelvis CT 04/04/23 18:34 IMPRESSION: Obstruction of the right kidney and proximal ureter from 2 adjacent proximal ureteral stones as much as 7 mm across. No other definite acute or significant abnormality seen. Electronically Signed: Mauro Hodges MD at 19:36 EDT , Discharge Plan Triage Chief Complaint: Flank Pain ED Provider: Abdelrahman Lunsford Dx/Rx/DC Orders Primary Care Provider: Sukh Bullock
[2023-04-04 18:40] LABS: Anion Gap 8 (5-15); BUN 15 mg/dL (7-18); BUN/Creat Ratio 10.3 RATIO (10-20); Calcium,Total 9.7 mg/dL (8.5-10.1); Chloride 106 mmol/L (98-107); Creatinine, Serum 1.45 mg/dL (0.70-1.30); EST Glomerular Filtration Rate 51 mL/min (>60); Est Glom Filt Rate - Afr Amer 62 mL/min (>60); Estimated Creatinine Clearance 48.08 ml/min; Glucose 128 mg/dL (74-106); Potassium 3.8 mmol/L (3.5-5.1); Sodium Level 142 mmol/L (136-145)
[2023-04-04] MEDS: Ondansetron 4 MG/2 ML Vial IV (18:40)
[2023-04-04] MEDS: 0.9% Normal Saline 1,000 ML 999 ML IV ×2 (18:40→20:31)
[2023-04-04] MEDS: Morphine 4 MG/ML Syringe IV (18:41)
[2023-04-04 18:51] LABS: Bacteria 0 SEEN /hpf (None Seen); Mucous, Urine 0 SEEN /hpf (<or=2+); Squamous Epithelial Cells - UA 0 SEEN /hpf (0-5)
[2023-04-04 19:15] LABS: Color, Urine Yellow (Yellow); Glucose, Dipstick Normal (Normal); Ketone-Dipstick 15 mg/dl (Negative); Leukocyte Esterase-Dipstick 25 /ul (Negative); Nitrite-Dipstick Negative (Negative); Occult Blood-Urine 250 /ul (Negative); Protein-Dipstick 30 mg/dl (Negative); Specific Gravity, Urine 1.025 (1.002-1.030); Urine Bilirubin Dipstick Negative (Negative); Urine Clarity Sl. Cloudy (Clear); Urine Urobilinogen 1 mg/dl (Normal)
[2023-04-04 19:25] LABS: Calcium Oxalate Crystals Ur 1+ /hpf (<or=2+); Red Blood Cells-Urine > 100 SEEN /hpf (0-5); White Blood Cells 0-5 SEEN /hpf (0-5)
[2023-04-04] MEDS: HYDROmorphone 0.5 MG/0.5 ML SYRINGE IV (19:29)
--- NOTE | 2023-04-04 20:51 | NURSING ---
MED SURG OBS KAREN KIDNEY STONE
[2023-04-04 20:52] VITALS: BP 143/77; PULSE 78; RESP 16; TEMP 36.8; O2SAT 98
[2023-04-04 21:41] VITALS: BP 156/91; PULSE 64; RESP 17; TEMP 36.8; O2SAT 99
[2023-04-04 21:43] VITALS: BMI 25.5
[2023-04-04] MEDS: 0.9% Normal Saline 1,000 ML 50 ML IV (22:26)
[2023-04-04] MEDS: Cefazolin 1 GM/50 ML BAG IV (22:26)
[2023-04-04] MEDS: Aspirin E.C. 81 MG Tablet PO (22:27)
[2023-04-04] MEDS: Atorvastatin Calcium 40 MG Tablet PO (22:27)
[2023-04-04] MEDS: amLODIPine 2.5 MG Tablet PO (22:49)
[2023-04-04] MEDS: 0.9% Saline Lock 10 ML Syringe IV (22:49)
[2023-04-05] VITALS (10 sets, daily range): BP systolic 120–156; BP diastolic 65–91; PULSE 53–74; RESP 16; TEMP 36.1–37.2; O2SAT 92–100; BMI 25.5
[2023-04-05] MEDS: 0.9% Saline Lock 10 ML Syringe IV (05:30)
[2023-04-05] MEDS: Cefazolin 1 GM/50 ML BAG IV ×2 (05:30→13:57)
--- NOTE | 2023-04-05 06:00 | EKG12_ITS ---
Test Reason : AM EKG Blood Pressure : / mmHG Vent. Rate : 074 BPM Atrial Rate : 074 BPM P-R Int : 178 ms QRS Dur : 090 ms QT Int : 364 ms P-R-T Axes : 037 012 062 degrees QTc Int : 404 ms Sinus rhythm with Premature atrial complexes Nonspecific T wave abnormality Abnormal ECG When compared with ECG of 06-JUN-2013 14:01, Premature atrial complexes are now Present Nonspecific T wave abnormality, worse in Anterolateral leads Confirmed by ELISE LLANOS, LORETTA ([id number]), supervising editor news reel DANIELE HICKS ([id number]) on 04/06/2023 8:27:54 AM Referred By: KAREN Confirmed By:LORETTA OLIVARES MD
--- NOTE | 2023-04-05 07:26 | PCM.HP.STD ---
HPI - General General Date of Admission: 04/04/23 HPI Narrative APRIL FERRARO, is a 67 M who presents with 2 large obstructing stone in the mid right ureter with severe renal colic on the right side plan to taken to surgery for cystoscopy and stent placement [facility] Medical History Alcohol use Asthma Atherosclerotic heart disease of [place] coronary artery without angina pectoris Chest pain Essential hypertension History of irregular heartbeat Hyperlipidemia Kidney stone Kidney stone Melanoma Premature atrial contractions Premature ventricular contraction Wears glasses Home Medications aspirin 81 mg tablet,delayed release 81 mg PO QDAY 05/31/18 [History Last Taken 04/03/23] zinc acetate 25 mg (zinc) capsule 25 mg PO DAILY 08/26/20 [History Last Taken 04/03/23] omega-3 fatty acids 1,000 mg capsule (Fish Oil Concentrate) 1,000 mg PO DAILY 02/21/21 [History Last Taken 04/03/23] multivitamin 1 tab PO DAILY 02/20/22 [History Last Taken 04/03/23] atorvastatin 40 mg tablet 40 mg PO QDAY #90 tabs 05/01/22 [Rx Last Taken 04/03/23] apremilast 30 mg tablet (Otezla) 30 mg PO DAILY 08/21/22 [History Last Taken 04/03/23] amlodipine 2.5 mg tablet 2.5 mg PO DAILY #30 tabs 03/01/23 [Rx Last Taken 04/02/23] Allergy/AdvReac Type Severity Reaction Status Date / Time irbesartan Allergy Severe Headaches, Verified 04/04/23 17:43 GI symptoms isosorbide AdvReac Intermediate Headache Verified 04/04/23 17:43 Family History Father , Age 70 Cancer brain Daughter Hypertension Other Heart disease Surgical History Aortocoronary bypass status (~06/08/11) History of cystoscopy History of left heart catheterization (LHC) (~05/11/20) History of lithotripsy (09/2021) History of thoracentesis Hx of lymph node biopsy Social History Smoking Status: Never smoker alcohol intake: current alcohol intake frequency: a few times a week details: occasional caffeine: Yes Type: coffee Number of servings: 3 ROS Constitutional Constitutional: Denies chills, fever(s) or malaise Eyes Eyes: Denies blurry vision or change in vision ENT HEENT: Reports none Cardiovascular Cardiovascular: Denies chest pain or palpitations Respiratory/Chest Respiratory/Chest: Denies cough or shortness of breath with exertion Gastrointestinal Gastrointestinal: Denies abdominal pain, constipation or diarrhea Musculoskeletal Musculoskeletal: Denies back pain, joint stiffness or joint swelling Integumentary Integumentary: Denies dry skin, jaundice, lesions or rash Neurologic Neurologic: Denies confusion, syncope or weakness Psychiatric Psychiatric: Reports none; Denies anxiety or depression Endocrine Endocrinology: Denies excessive sweating, fatigue or flushing Hematologic/Lymphatic Hematologic/Lymphatic: Denies anemia, easy bleeding or easy bruising Vital Signs Vital Signs Vital Signs: 04/04/23 17:43 04/04/23 20:52 04/04/23 21:41 Temperature 97.9 F 98.2 F 98.3 F Temperature Source Temporal Oral Oral Pulse Rate 72 78 64 Respiratory Rate 18 16 17 Blood Pressure 165/88 H 143/77 H 156/91 H Blood Pressure Mean 113 99 112 Blood Pressure Source Monitor Blood Pressure Position Semi-Fowlers Blood Pressure Location Left Arm Pulse Ox 99 98 99 Oxygen Delivery Method Room Air Room Air Room Air 04/05/23 05:10 Temperature 98.4 F Temperature Source Oral Pulse Rate 63 Respiratory Rate 16 Blood Pressure 123/66 H Blood Pressure Mean 85 Blood Pressure Source Monitor Blood Pressure Position Supine Blood Pressure Location Right Arm Pulse Ox 96 Oxygen Delivery Method Room Air Weight Weight: 78.5 kg Body Mass Index (BMI) 25.5 Physical Exam Const alert and oriented x3 General Appearance: cooperative HEENT normocephalic, head/scalp atraumatic, EAC's normal and TM's normal bilaterally Eyes PERRL and EOMs intact bilaterally Pupil: sluggish Neck no lymphadenopathy, supple and no JVD General: trachea midline Lymph Lymphatic: no lymphadenopathy noted, lymphedema and lymphadenopathy Resp normal respiratory effort, normal air movement and clear to auscultation bilaterally Cardio regular rate, regular rhythm and peripheral pulses 2+ throughout GI soft to palpation, non-tender and non-distended Extremity normal capillary refill and no clubbing, cyanosis or edema General Extremity: no tenderness to palpation of joints or extremities Skin no rashes or lesions noted General Skin Exam: turgor normal Lesions: no lesions Rashes: no rashes Neuro CN's II-XII intact bilaterally Speech: speech normal Motor Exam: strength 5/5 throughout; Negative for general weakness Psych thought process normal, cooperative and affect normal Appearance: appropriate Results Medical Records Data Attestation: I reviewed the patient's medical records Lab / Micro Data Result Diagrams: 04/04/23 18:18 04/04/23 18:18 Labs: Laboratory Results - last 24 hr 04/04/23 18:18: WBC 14.4 H, RBC 4.63, Hgb 14.0, Hct 41.4, MCV 89.4, MCH 30.2, MCHC 33.8, RDW Std Deviation 39.0, RDW Coeff of Ru 12.0, Plt Count 200, MPV 10.1, Immature Gran % (Auto) 0.600, Neut % (Auto) 80.7 H, Lymph % (Auto) 11.1 L, [place] % (Auto) 6.5, Eos % (Auto) 0.8, Baso % (Auto) 0.3, Absolute Neuts (auto) 11.6 H, Absolute Lymphs (auto) 1.60, Nucleated RBC % 0 04/04/23 18:18: Sodium 142, Potassium 3.8, Chloride 106, Carbon Dioxide 28.0, Anion Gap 8, BUN 15, Creatinine 1.45 H, Estim Creat Clear Calc 48.08, Est GFR (MDRD) Af Amer 62, Est GFR (MDRD) Non-Af 51 L, BUN/Creatinine Ratio 10.3, Glucose 128 H, Calcium 9.7 04/04/23 18:43: Urine Color Yellow, Urine Clarity Sl. Cloudy, Urine pH 5.0, Ur Specific [place] 1.025, Urine Protein 30 H, Urine Glucose (UA) Normal, Urine Ketones 15 H, Urine Occult Blood 250 H, Urine Nitrite Negative, Urine Bilirubin Negative, Urine Urobilinogen 1 H, Ur Leukocyte Esterase 25 H, Urine RBC > 100 SEEN, Urine WBC 0-5 SEEN, Ur Squamous Epith Cells 0 SEEN, Calcium Oxalate Crystal 1+, Urine Bacteria 0 SEEN, Urine Mucus 0 SEEN Radiology Impression Abdomen/Pelvis CT 04/04/23 18:34 IMPRESSION: Obstruction of the right kidney and proximal ureter from 2 adjacent proximal ureteral stones as much as 7 mm across. No other definite acute or significant abnormality seen. Electronically Signed: Mauro Hodges MD at 19:36 EDT , Assessment & Plan Assessment/Plan (1) Right ureteral calculus: PLAN: plan for right stent placement today, npo
[2023-04-05] MEDS: Lactated Ringers 1,000 ML 15 ML IV (11:26)
--- NOTE | 2023-04-05 12:16 | DCINST_ITS ---
Discharge Instructions Diet Discharge Diet: No restrictions, Light diet - advance as tolerated and Soft diet Activity Discharge Activity: Return to Normal Activity Follow Up Care Please Follow Up With: Filemon Nazario MD When: call my office for instructions. Test Results: Test results from this visit will be discussed in further detail at your follow- up appointment, if applicable. Discharge Plan Admission Admit Date/Time: 04/04/23 20:45 Primary Reason for Your Visit: kidney stone Attending Provider: Filemon Nazario Primary Care Provider: Sukh Bullock Discharge Orders/Prescriptions Prescriptions: New ciprofloxacin HCl [Cipro] 500 mg tablet 500 mg PO BID Qty: 10 0RF oxycodone-acetaminophen [Endocet] 5-325 mg tablet 1 tab PO Q6H PRN (Reason: pain) 7 Days Qty: 14 0RF Continued aspirin 81 mg tablet,delayed release (DR/EC) 81 mg PO QDAY omega-3 fatty acids [Fish Oil Concentrate] 1,000 mg capsule 1,000 mg PO DAILY zinc acetate 25 mg (zinc) capsule 25 mg (zinc) capsule 25 mg PO DAILY Rx Instructions: swallow whole; do not chew/break/dissolve/open multivitamin Tablet 1 tab PO DAILY Otezla 30 mg tablet 30 mg PO DAILY atorvastatin 40 mg tablet 40 mg PO QDAY Qty: 90 3RF Rx Instructions: Awaiting mail in RX amlodipine 2.5 mg tablet 2.5 mg PO DAILY Qty: 30 11RF Referrals / Follow Up: Sukh Bullock MD [Primary Care Provider] - Filemon Nazario MD [Med Staff - Active Staff] - Disposition Discharge Orders: Discharge Patient (Routine); Ordered 04/05/23 Ordered By: Dr. Filemon Nazario
--- NOTE | 2023-04-05 12:17 | PCM.OPRPT ---
Report of Operation Date of Procedure: 04/05/23 Pre-Operative Diagnosis: Right ureteral obstructing calculi severe pain Post-Operative Diagnosis: The same Surgery/Procedure Performed:: Cystoscopy right stent placement, right retrograde Description of Surgical Findings:: Patient was taken back to the operating room after induction of general anesthesia, the patient was placed in dorsolithotomy position. The urethra and genitals were prepped and draped in usual sterile fashion. Using a 21 [place] rigid cystourethroscope the entire length of the urethra was normal then went into the bladder. Identified the trigone the left and right ureteral orifice. I then cannulated the right ureteral orifice and advanced a wire up into the kidney. I then backloaded a 5 [place] open ended catheter over the wire and injected contrast to delineate the anatomy. After the retrograde was performed I then used fluoroscopic images and guidance to advanced a wire up into the kidney and over the 0.038 glidewire I advanced a 6 [place] by 26 cm double pigtail stent. I then pulled the 0.038 Glidewire off and the stent coiled in the kidney bladder good position. The bladder was then drained. We confirmed the position of the stent by fluoroscopy. Patient anesthetic was reversed and was taken back to the PACU in good condition. Surgeon: Filemon Nazario Type of Anesthesia: MAC Drains: stent right side Admit VTE Documentation VTE Present on Admission: No VTE Mechan Device Prophylaxis: SCD's VTE Pharm Prophylaxis ordered?: No
== END 2023-04-05 15:59 | disposition home or self-care (01) ==
LOC: ED 19:24 → MS3 21:04
PROVIDERS: Admitting Provider Urology; Emergency Provider Student in an Organized Health Care Education/Training Program; PCP Family Medicine; Visit Provider Urology
PROC: (CPT 52332; principal; 2023-04-05 11:50)
DX: N13.2 Hydronephrosis with renal and ureteral calculous obstruction (principal); I10 Essential (primary) hypertension; I25.10 Atherosclerotic heart disease of native coronary artery without angina pectoris; Z79.82 Long term (current) use of aspirin; E78.5 Hyperlipidemia, unspecified; J45.909 Unspecified asthma, uncomplicated; Z79.899 Other long term (current) drug therapy; Z95.1 Presence of aortocoronary bypass graft
CPT/HCPCS: 52332; 00910; 74177; 76000; 80048; 81001; 85025; 93005; 96361; 96365; 96366; 96375; 99221; 99284; J7030; J7050; J7120; Q9967; A4216; C1769; C2617; G0378; J2405

== ENCOUNTER → 2023-05-25 | Outpatient (CLI) | payer MEDICARE, OTHER, SELFPAY ==
[2023-05-25 16:20] LABS: Absolute Lymphocyte Count 2.54 X10^3/uL (0.83-4.51); Absolute Neutrophil Count 5.5 X10^3/uL (2.0-7.7); Basophil# 0.05 X10^3/uL; Basophil% 0.5 % (0-1); Eosinophil# 0.13 X10^3/uL; Eosinophils% 1.4 % (0-5); Hematocrit 43.2 % (40-54); Hemoglobin 14.5 g/dL (13.0-16.5); Lymphocyte # 2.54 X10^3/ul (0.83-4.51); Lymphocyte % 27.6 % (19-41); Mean Corp Hgb Conc 33.6 g/dL (32-36); Mean Corpuscular Hgb 30.5 pg (27.0-32.0); Mean Corpuscular Volume 90.8 fL (80-94); Monocyte# 0.98 X10^3/uL; Monocyte% 10.7 % (0-10); NRBC Flagged by Analyzer 0 % (0-5); Neutrophil # 5.47 X10^3/uL (2.7-7.7); Neutrophil % 59.5 % (47-70); Platelet Count 216 K/mm3 (150-450); RBC Distribution Width CV 12.3 % (11.6-14.6); RBC Distribution Width SD 41.3 fl (35.1-43.9); Red Blood Count 4.76 M/mm3 (4.6-6.2); White Blood Count 9.2 K/mm3 (4.4-11.0)
[2023-05-25 17:08] LABS: Microalbumin,Random Urine 14.4 mg/L (NO RANGE EST.); Microalbumin:Creatinine Ratio 5.2 mg/g CRE (<30 mg/g CRE)
[2023-05-25 17:34] LABS: ALB/GLOB Ratio 1.2 RATIO (0.9-2.4); AST(SGOT) 17 U/L (15-37); Alanine Aminotransfer ALT/SGPT 25 U/L (16-61); Alkaline Phosphatase 84 U/L (45-117); Anion Gap 5 (5-15); BUN 15 mg/dL (7-18); BUN/Creat Ratio 11.7 RATIO (10-20); Calcium,Total 9.8 mg/dL (8.5-10.1); Chloride 106 mmol/L (98-107); Creatinine, Serum 1.28 mg/dL (0.70-1.30); EST Glomerular Filtration Rate 59 mL/min (>60); Est Glom Filt Rate - Afr Amer 72 mL/min (>60); Globulin 3.4 g/dL (2.2-4.2); Glucose 96 mg/dL (74-106); Protein, Total 7.4 g/dL (6.4-8.2); Sodium Level 139 mmol/L (136-145)
[2023-05-25 17:40] LABS: Cholesterol 143 mg/dL (200); High Density Lipoprotein 67 mg/dL; Triglycerides 49 mg/dL; Very Low Density Lipoprotein 10 mg/dL (5-40)
== END | disposition home or self-care (01) ==
LOC: LAB 15:20
PROVIDERS: Internal Medicine Cardiovascular Disease; PCP Family Medicine; Referring Provider Internal Medicine Cardiovascular Disease; Visit Provider Internal Medicine Cardiovascular Disease
DX: I25.10 Atherosclerotic heart disease of native coronary artery without angina pectoris (principal); I10 Essential (primary) hypertension; R73.09 Other abnormal glucose; E78.00 Pure hypercholesterolemia, unspecified; Z98.890 Other specified postprocedural states
CPT/HCPCS: 36415; 80053; 80061; 82043; 82248; 82570; 83036; 85025

== ENCOUNTER → 2023-08-01 | Outpatient (CLI) | payer MEDICARE, OTHER, SELFPAY ==
[2023-08-01 09:48] LABS: Absolute Lymphocyte Count 1.97 X10^3/uL (0.83-4.51); Absolute Neutrophil Count 4.1 X10^3/uL (2.0-7.7); Basophil# 0.07 X10^3/uL; Eosinophil# 0.22 X10^3/uL; Eosinophils% 3.1 % (0-5); Hematocrit 41.8 % (40-54); Hemoglobin 14.5 g/dL (13.0-16.5); Lymphocyte # 1.97 X10^3/ul (0.83-4.51); Lymphocyte % 27.7 % (19-41); Mean Corp Hgb Conc 34.7 g/dL (32-36); Mean Corpuscular Hgb 30.5 pg (27.0-32.0); Mean Corpuscular Volume 87.8 fL (80-94); Mean Platelet Vol. 10.1 fl (6.2-12.0); Monocyte# 0.76 X10^3/uL; Monocyte% 10.7 % (0-10); NRBC Flagged by Analyzer 0 % (0-5); Neutrophil # 4.06 X10^3/uL (2.7-7.7); Neutrophil % 57.2 % (47-70); Platelet Count 195 K/mm3 (150-450); RBC Distribution Width CV 12.5 % (11.6-14.6); RBC Distribution Width SD 40.4 fl (35.1-43.9); Red Blood Count 4.76 M/mm3 (4.6-6.2); White Blood Count 7.1 K/mm3 (4.4-11.0)
[2023-08-01 10:26] LABS: ALB/GLOB Ratio 1.2 RATIO (0.9-2.4); AST(SGOT) 20 U/L (15-37); Alanine Aminotransfer ALT/SGPT 27 U/L (16-61); Albumin, Serum 3.6 g/dL (3.2-5.0); Alkaline Phosphatase 77 U/L (45-117); Anion Gap 5 (5-15); BUN 11 mg/dL (7-18); BUN/Creat Ratio 8.8 RATIO (10-20); Calcium,Total 8.8 mg/dL (8.5-10.1); Chloride 110 mmol/L (98-107); Cholesterol 134 mg/dL (200); Creatinine, Serum 1.25 mg/dL (0.70-1.30); EST Glomerular Filtration Rate 61 mL/min (>60); Est Glom Filt Rate - Afr Amer 74 mL/min (>60); Glucose 104 mg/dL (74-106); High Density Lipoprotein 52 mg/dL; Potassium 4.1 mmol/L (3.5-5.1); Protein, Total 6.6 g/dL (6.4-8.2); Sodium Level 141 mmol/L (136-145); Triglycerides 86 mg/dL; Very Low Density Lipoprotein 17 mg/dL (5-40)
[2023-08-01 10:29] LABS: Microalbumin,Random Urine 23.3 mg/L (NO RANGE EST.)
== END | disposition home or self-care (01) ==
PROVIDERS: PCP Family Medicine; Referring Provider Family Medicine; Visit Provider Family Medicine
DX: N40.0 Benign prostatic hyperplasia without lower urinary tract symptoms (principal); I10 Essential (primary) hypertension; L40.9 Psoriasis, unspecified; E78.00 Pure hypercholesterolemia, unspecified
CPT/HCPCS: 36415; 80053; 80061; 82043; 82570; 84153; 85025

== ENCOUNTER → 2024-01-25 | Outpatient (CLI) | payer MEDICARE, OTHER, SELFPAY ==
--- OUTSIDE RECORDS SUMMARY | 2024-01-25 09:46 | XMS RPT_ITS | CCD ---
Author Name Unknown Address [address] [place] [address] Organization [facility] Results Test Name Value Interpretation Reference Range Facil ity Summary Purpose Family History No Family History Records Found Advance Directives No Advanced Directives Records Found Additional Source Comments (unrecognized sect ion and content) No Status Records Found INFORMATION SOURCE (unrecogn ized section and content) FOR RECORDS PERTAINING TO PATIENTS WHO ARE OR HAVE BEEN ENROLLED IN A CHEMICAL DEPENDENCY/SUBSTANCEABUSE PROGRAM, SOME INFORMATION MAY BE OMITTED. This clinical summary was aggregated from multiple sources. Caution should be exercised in using it in the provision of clinical care. This summary normalizes information from multiple sources, and as a consequence, information in this document may materially change the coding, format and clinical context of patient data. In addition, data may be omitted in some cases. CLINICAL DECISIONS SHOULD BE BASED ON THE PRIMARY CLINICAL RECORDS. [employer] provides no warranty or guarantee of the accuracy or completeness of information in this document.
[2024-01-25 10:50] LABS: ALB/GLOB Ratio 1.3 RATIO (0.9-2.4); AST(SGOT) 19 U/L (15-37); Alanine Aminotransfer ALT/SGPT 25 U/L (16-61); Albumin, Serum 3.9 g/dL (3.2-5.0); Alkaline Phosphatase 80 U/L (45-117); Anion Gap 1 (5-15); BUN 15 mg/dL (7-18); BUN/Creat Ratio 11.9 RATIO (10-20); Calcium,Total 9.3 mg/dL (8.5-10.1); Chloride 110 mmol/L (98-107); Creatinine, Serum 1.26 mg/dL (0.70-1.30); EST Glomerular Filtration Rate 60 mL/min (>60); Est Glom Filt Rate - Afr Amer 73 mL/min (>60); Glucose 110 mg/dL (74-106); Protein, Total 6.9 g/dL (6.4-8.2); Sodium Level 141 mmol/L (136-145)
== END | disposition home or self-care (01) ==
LOC: LAB 09:22
PROVIDERS: PCP Family Medicine; Referring Provider Family Medicine; Visit Provider Family Medicine
DX: I10 Essential (primary) hypertension (principal)
CPT/HCPCS: 36415; 80053

== ENCOUNTER → 2024-03-24 | Outpatient (CLI) | payer MEDICARE, OTHER, SELFPAY | END | disposition home or self-care (01) | LOC: PSN 07:35 | PROVIDERS: PCP Family Medicine; Referring Provider Nurse Practitioner Gerontology; Visit Provider Nurse Practitioner Gerontology | DX: I49.1 Atrial premature depolarization (principal) | CPT/HCPCS: 93225; 93226 ==

== ENCOUNTER → 2024-04-29 | Outpatient (CLI) | payer MEDICARE, OTHER, SELFPAY ==
[2024-04-29 16:52] LABS: PSA,Total - Annual Screen 1.41 ng/mL (0.00-4.00)
== END | disposition home or self-care (01) ==
LOC: LAB 15:41
PROVIDERS: PCP Family Medicine; Referring Provider Nurse Practitioner; Visit Provider Nurse Practitioner
DX: Z12.5 Encounter for screening for malignant neoplasm of prostate (principal)
CPT/HCPCS: 36415; 84153; G0103

== ENCOUNTER 2024-05-05 05:24 | Day surgery (SDC) | payer MEDICARE, OTHER, SELFPAY ==
[2024-04-22 11:18] LABS: Hematocrit 42.9 % (40-54); Hemoglobin 14.4 g/dL (13.0-16.5); Mean Corp Hgb Conc 33.6 g/dL (32-36); Mean Corpuscular Hgb 29.9 pg (27.0-32.0); Mean Corpuscular Volume 89.2 fL (80-94); Mean Platelet Vol. 10.4 fl (6.2-12.0); Platelet Count 192 K/mm3 (150-450); RBC Distribution Width CV 12.7 % (11.6-14.6); RBC Distribution Width SD 41.5 fl (35.1-43.9); Red Blood Count 4.81 M/mm3 (4.6-6.2); White Blood Count 8.2 K/mm3 (4.4-11.0)
[2024-04-22 11:36] LABS: Anion Gap 4 (5-15); BUN 12 mg/dL (7-18); BUN/Creat Ratio 9.9 RATIO (10-20); Calcium,Total 9.6 mg/dL (8.5-10.1); Chloride 108 mmol/L (98-107); Creatinine, Serum 1.21 mg/dL (0.70-1.30); EST Glomerular Filtration Rate 63 mL/min (>60); Est Glom Filt Rate - Afr Amer 76 mL/min (>60); Glucose 106 mg/dL (74-106); Potassium 4.3 mmol/L (3.5-5.1); Sodium Level 140 mmol/L (136-145)
[2024-05-05] VITALS (11 sets, daily range): BP systolic 118–139; BP diastolic 61–84; PULSE 56–99; RESP 14–16; TEMP 36.6–36.9; O2SAT 93–100; BMI 25.7
[2024-05-05] MEDS: Lactated Ringers 1,000 ML 15 ML IV ×2 (06:33→10:09)
--- NOTE | 2024-05-05 06:45 | PCM.HP.BLA ---
History and Physical Date of Admission: 05/05/24 Allergies irbesartan Allergy (Severe, Verified 04/22/24 09:33) Headaches, GI symptomsisosorbide Adverse Reaction (Intermediate, Verified 04/22/24 09:33) Headachemetoprolol Adverse Reaction (Intermediate, Verified 04/22/24 09:33) Dizziness, Tired, Vomiting with Tartrate and Succinate Medications ?Medication ?Instructions ?Recorded ?Confirmed ?Type aspirin 81 mg tablet,delayed 81 mg PO QDAY 05/31/18 04/22/24 History release multivitamin 1 tab PO DAILY 02/20/22 04/22/24 History apremilast 30 mg tablet (Otezla) 30 mg PO DAILY 08/21/22 04/22/24 History tamsulosin 0.4 mg capsule 0.4 mg PO DAILY 05/25/23 04/22/24 History fluticasone propionate 110 2 puff inhalation ONCE PRN 03/13/24 04/22/24 History mcg/actuation HFA aerosol inhaler breathing (Flovent HFA) albuterol sulfate 90 mcg/actuation 1 puff inhalation ONCE PRN 03/31/24 04/22/24 Rx aerosol inhaler shortness of breath or wheezing #8.5 grams diltiazem HCl 120 mg 120 mg PO DAILY #30 caps 04/14/24 04/22/24 Rx capsule,extended release 24 hr atorvastatin 40 mg tablet 40 mg PO QDAY #90 tabs 04/17/24 04/22/24 Rx nitroglycerin 400 mcg/spray 1 spray sublingual Q5M PRN chest 04/18/24 04/22/24 History translingual aerosol pain zinc 50 mg tablet 50 mg PO DAILY 04/18/24 04/22/24 History PFSH Medical History Cancer Psoriasis History of kidney stones High cholesterol Injury of head and neck Non-smoker History of Holter monitoring History of stress test Cardiology follow-up encounter Kidney stone Wears glasses Alcohol use Asthma History of irregular heartbeat Kidney stone Chest pain Melanoma Essential hypertension Hyperlipidemia Premature ventricular contraction Premature atrial contractions Atherosclerotic heart disease of [place] coronary artery without angina pectoris Surgical History History of colonoscopy Status post placement of ureteral stent (~03/2023) History of lithotripsy (09/2021) Hx of lymph node biopsy History of left heart catheterization (LHC) (~05/11/20) History of cystoscopy History of thoracentesis Aortocoronary bypass status (~06/08/11) Family History Father , Age 70 Cancer brainDaughter HypertensionGrandfather Heart disease Social History Smoking Status: Never smoker alcohol intake: current alcohol intake frequency: a few times a week details: occasional caffeine: Yes Type: coffee Number of servings: 3 HPI HPI HPI: Patient is a 68 y/o M I am seeing for an update history and physical. Patient denies any recent hospitalizations or illnesses since our last visit. Patient has been evaluated by cardiology and pulmonology, who have cleared the patient for his upcoming procedure. Patient notes he was having dizziness while being on metoprolol and was removed off of it. Patient is now on diltiazem. he was taken off of Amlodipine as well. Patient does follow-up with Dr. Vargas in 1 week. Patient denies any increase in hernia symptoms. He denies any previous complications or side effects from anesthesia. Patient's previous history per Dr. Gamble: 68-year-old gentleman is being referred by Dr. Sukh Bullock for surgical consultation regarding a left inguinal hernia and a written compromise surgical consult recommendations will be returned to him. By report the patient noted a small movable lump in the left groin with very mild tenderness. On clinical examination this was felt to be consistent with a hernia. It is of note that April 04, 2023 at the [facility] the patient had an abdominal pelvic CT scan. There is no mention of inguinal hernia at that time per radiology. On my review of those images however the patient clearly had an umbilical hernia and a likely left scrotal lipoma or hydrocele The patient vigorously enjoys working out going to [employer] 5 days a week. He does weight training as well lifting up to 200 pounds. He noticed 4 months ago a bulge in the left groin but he has been able to reduce it. He had a coronary stress test he states a couple years ago that was not remarkable. 2010 because of back pain with mowing the lawn he was found to have a completely occluded LAD and underwent coronary bypass grafting x 4. By his report he has not had difficulty since. Family history is strong for coronary disease. His bridge game director is Dr. Luis Vargas. He states he has not had any recurrent symptoms. ROS General General: Yes weight change and fatigue; No appetite, colon cancer, breast cancer or weakness HEENT HEENT: No difficulty swallowing, eye injury, eye surgery, swollen glands or hoarseness Endo Endocrine: No thyroid disease, diabetes mellitus, thyroid cancer, Hair loss, heat intolerance or cold intolerance Skin Skin: Yes changing moles; No rash Musc Musculoskeletal: Yes back problems; No arthritis, rheumatoid arthritis, gout or joint pain Cardio Cardiovascular: Yes heart disease and high blood pressure; No murmur, pacemaker, atrial fibrillation, heart attack, heart stent, palpitations, shortness of breat with exertion or chest pain Psych Psychiatric: No depression, anxiety or hearing voices Resp Respiratory: No shortness of breath, No sleep apnea, No cough, No COPD, Yes asthma, No emphysema and No wheezing Gastro Gastrointestinal: Yes abdominal pain, No nausea or vomiting, Yes diarrhea, No constipation, No blood in stool, No acid reflux, No hemorrhoids, No ulcers, Yes gallbladder problem and No black,tarry stools [place] Hematologic: No blood thinners, No blood disorders, No bleeding, No anemia and No blood clots Neuro Neurologic: No system reviewed and no additional complaints, except as documented, No as per HPI, No abnormal gait, No abnormal hearing, No abnormal movements, No abnormal speech, No behavioral changes, No burning sensations, No confusion, No convulsions, No disequilibrium, No dizziness, No localized weakness, No frequent falls, No headache(s), No lack of coordination, No loss of vision, No memory loss, No numbness, No other visual disturbances, No radicular pain, No restless legs, No sensory deficit, No syncope, No tingling, No tremor(s), No weakness and No other Exam Const General: cooperative, healthy appearing, comfortable and no acute distress [facility] Head: normal to inspection Eyes General: appearance normal, both eyes and all related structures Neck Neck: normal visual inspection Neck mass: No Chest Chest palpation & inspection: normal inspection of the chest Resp Effort & Inspection: normal respiratory effort Auscultation: clear to auscultation bilaterally Cardio Rate: regular rate Rhythm: regular rhythm GI Palpation: soft and hernia (left inguinal hernia, small right inguinal hernia and umbilical hernia) Auscultation: normal bowel sounds Musc Cervical Spine: normal cervical lordosis Skin General: no rashes or lesions noted Neuro General: no focal motor deficits and CN's II-XI intact bilaterally Extrem General: normal to inspection Psych Appearance: grossly normal Affect: normal affect Assessment and Plan Assessment and Plan (1) Umbilical hernia without obstruction or gangrene: Status: Acute (2) Bilateral inguinal hernia without obstruction or gangrene: Status: Acute Qualifiers: Recurrence: non-recurrent Qualified Code(s): K40.20 - Bilateral inguinal hernia, without obstruction or gangrene, not specified as recurrent Plan Dr. Gamble will plan to perform a laparoscopic bilateral inguinal hernia repair and umbilical hernia repair with mesh. Procedure details, risks and benefits have been reviewed. Patient and his have had the opportunity to ask and have questions answered. Patient verbally understands and agrees with the plan. He may continue his aspirin until the day prior to the procedure. We discussed post-operative restrictions and recovery I have examined the patient and the H&P has been reviewed. There are no clinical changes since date of exam. Lew Gamble M.D., F.A.C.S.
--- NOTE | 2024-05-05 06:47 | DCINST_ITS ---
Discharge Instructions Procedure General Surgery Diet Discharge Diet: Light diet - advance as tolerated (if you have questions about your diet instructions, please talk to you doctor.) Activity Discharge Activity: May Not Drive (for 3-5 days or while taking narcotic pain medicine.) May shower in (days): 1 Lifting Restrictions: 10 pounds Dressing / Incision Call your doctor if your incision/area has: Continuous Slow Oozing, Sudden Increased Bleeding, Increased Pain/ Swelling, Increased Redness and Foul Smelling Discharge Call your doctor if you observe: Fever of 101 or Higher Suture Line Care: Avoid Pulling/Pushing and Avoid Pinching/Bending Additional Dressing/Incision Instructions:: Change or remove dressing in 4 days. Leave steri-strips in place for 1 week. Follow Up Care Please Follow Up With: Lew Gamble MD When: Call [phone] to make an appointment to be seen in about 10 days. Test Results: Test results from this visit will be discussed in further detail at your follow- up appointment, if applicable. Discharge Plan Admission Attending Provider: Lew Gamble Primary Care Provider: Sukh Bullock Instructions Print Language: Salvadorean Discharge Orders/Prescriptions Prescriptions: No Action aspirin 81 mg tablet,delayed release (DR/EC) 81 mg PO QDAY multivitamin Tablet 1 tab PO DAILY Otezla 30 mg tablet 30 mg PO DAILY albuterol sulfate 90 mcg/actuation HFA aerosol inhaler 1 puff inhalation ONCE PRN (Reason: shortness of breath or wheezing) Qty: 8.5 11RF tamsulosin 0.4 mg capsule 0.4 mg PO BID fluticasone propionate [Flovent HFA] 110 mcg/actuation HFA aerosol inhaler 2 puff inhalation ONCE PRN (Reason: breathing) zinc 50 mg tablet 50 mg PO DAILY nitroglycerin 400 mcg/spray aerosol,spray 1 spray sublingual Q5M PRN (Reason: chest pain) Rx Instructions: do not exceed 3 doses per episode amlodipine 2.5 mg tablet 2.5 mg PO QHS atorvastatin 40 mg tablet 40 mg PO QDAY Qty: 90 3RF Referrals / Follow Up: Sukh Bullock MD [Primary Care Provider] - Disposition Disposition (needs filled in before D/C Order can be placed): Home, Self Care
[2024-05-05] MEDS: Cefazolin 2 GM in 0.9% Normal Saline (100mL Bag) 100 ML IV (07:17)
--- NOTE | 2024-05-05 07:30 | HERN_PTH ---
PATIENT: APRIL FERRARO LOC: [facility] [place] U#:[id number] AGE/SX: 68/M ROOM: RE05/05/[address]: Dr. Lew Gamble MD : [id number] BED: DIS: 05/05/2024 SPEC #: [id number] RECD: 05/05/24 09:41 STATUS: HAYDE CARVAJAL #: [id number] FRANK: 05/05/24 07:[address]: Lew Gamble DEPT: SURGICAL PATHOLOGY RECD BY: Mary Jane Grimaldo ENTERED: 05/05/24 11:40 SP TYPE: Hernia OTHR DR: Dr. Sukh Bullock MD Tissues: HERNIA Procedures: Surgery Specimen Level II HEADER OPERATION: Laparoscopic, bilateral inguinal hernia repair with mesh PRE-OP DIAGNOSIS: Bilateral inguinal hernias and umbilical hernia TISSUE SUBMITTED: Umbilical hernia sac and contents MICROSCOPIC DIAGNOSIS Umbilical hernia sac and contents, excision: Fibrosis and minimal chronic inflammation. AM/ 05/06/2024 MICROSCOPIC DESCRIPTION Slides are reviewed. GROSS DESCRIPTION Received in fixative is one container labeled with the patient's name and designated Umbilical hernia sac and contents. The specimen consists of two pieces of yellow adipose tissue measuring in aggregate 2.0 x 1.5 x 0.6cm. No mass lesion is identified. The larger piece is bisected. The entire specimen is submitted in one cassette.CARLEY/ 05/05/2024 TC:5 CPT:08242
[2024-05-05] MEDS: Bupivacaine Mpf 0.5% 30 ML VIAL (08:50)
--- NOTE | 2024-05-05 09:00 | OP.PCM_ITS ---
Report of Operation Date of Procedure: 05/05/24 Pre-Operative Diagnosis: Bilateral inguinal hernias. Umbilical hernia Post-Operative Diagnosis: Bilateral indirect inguinal hernias larger on the left. Umbilical hernia, 2 cm defect Surgery/Procedure Performed:: Laparoscopic bilateral inguinal herniorrhaphy with Bard 3D max large mesh. Umbilical herniorrhaphy with 4.[address] hernia patch Ventralex ST 4.3 cm hernia patch. Reference [id number], lot [id number], expiry date 06/22/2025 Large right Bard 3D max mesh: Reference [id number], lot [id number], expiry date 07/21/2028 Large left Bard 3D max mesh: Reference [id number], lot [id number], expiry date 09/22/2027` Description of Surgical Findings:: Timeout informed consent was obtained. 68-year-old gentleman was taken to the operating placed upon the table underwent general and tracheal intubation anesthesia. Ancef 2 g were given intravenously. The abdomen was sterilely prepped and draped. 0.5% Marcaine was used as a local anesthetic. Skin sites were anesthetized. A total of 30 cc was used. A curvilinear infraumbilical incision was created sharp dissection carried down through the subcutaneous tissue the umbilical hernia sac and contents. Using sharp dissection electroca utery dissection this dissection did free. Specimen hernia sac and contents was submitted for analysis. Holding sutures of 0 Vicryl placed. There is no inserted. Saline drop test performed. The abdomen was insufflated with CO2 to a pressure of 10 mmHg pressure. 10 mm trocar inserted. 10 mm laparoscope inserted. Under direct visualization 5 mm ports were placed in the right and left lower quadrants. Bilateral ilioinguinal nerve blocks performed. A smaller indirect right inguinal hernia was identified. A larger left indirect inguinal hernia was identified. Peritoneum superior lateral to the internal ring on the left was incised carried medially the peritoneum was then tediously sharply and bluntly completely dissected free until the direct indirect and femoral area were identified. Significant amount of work was required to dissect the cord structures off the large indirect left sac. I again retropubic axis. The urinary bladder was carefully dissected free. In a similar approach then on the right incised the peritoneum tediously sharply and bluntly dissected that free the smaller indirect sac on the right was dissected free as well. Now large Bard 3D max mesh was placed on the right it was place was to cover the direct indirect and femoral area. It was secured laterally superiorly and medially with secure strap. The Bard 3D max large mesh was placed from the right the 2 edges met at the midline it also was secured medially superiorly and laterally with secure strap. I felt that I had very good positioning and securement of the mesh. The peritoneum was then approximated to itself with Hem-o-sarai clips and secure strap so as to completely obliterate access to the mesh. The abdomen was allowed to deflate of the CO2. The retrorectus space was developed at the umbilicus. A 4.[address] mesh was inserted and the tails were secured with interrupted 0 Nurolon. The fascia was approximated transversely with simple sutures of 0 Nurolon and the anterior portion of the mesh was collected with that closure. The defect measured only 2 cm in diameter.. Nice closure was achieved. The abdomen was briefly reinsufflated to 5 mmHg pressure and the umbilical site identified the mesh could not be easily visible as it was nicely retrorectus. The abdomen was again allowed to deflate of the CO2. The skin at the umbilicus approximately opted for Monocryl subdermal stitches. This was followed by Steri-Strips cottonball Telfa OpSite. Bilateral port sites were closed interrupted 4-0 Monocryl subdermal stitches as well. Steri-Strips Telfa OpSite dressings applied. Sponge and instrument and needle size were reported to the surgeon to be correct. Specimens umbilical hernia sac and contents. Drains none. Blood loss minimal. The patient was taken to the recovery room in satisfactory addition without apparent complication Surgeon: Lew Gamble Type of Anesthesia: Epidural/Supplement and Local Anesthesiologist: Emmanuel Arroyo
[2024-05-05] MEDS: HYDROcodone Bitartrate/Apap 5/325 Tablet PO (11:09)
== END 2024-05-05 16:58 | disposition home or self-care (01) ==
LOC: SDC 05:25 → AC 05:35
PROVIDERS: PCP Family Medicine; Referring Provider Family Medicine; Visit Provider Surgery
PROC: (CPT 49650; principal; 2024-05-05 07:10)
DX: K40.20 Bilateral inguinal hernia, without obstruction or gangrene, not specified as recurrent (principal); K42.9 Umbilical hernia without obstruction or gangrene; I10 Essential (primary) hypertension; I25.10 Atherosclerotic heart disease of native coronary artery without angina pectoris; E78.00 Pure hypercholesterolemia, unspecified; J45.909 Unspecified asthma, uncomplicated; Z79.51 Long term (current) use of inhaled steroids; Z79.899 Other long term (current) drug therapy; Z79.82 Long term (current) use of aspirin; Z95.5 Presence of coronary angioplasty implant and graft; Z95.1 Presence of aortocoronary bypass graft
CPT/HCPCS: 49650; 49593; 00840; 36415; 80048; 85027; 88302; J7120; C1781; J2405

== ENCOUNTER → 2024-07-02 | Outpatient (CLI) | payer MEDICARE, OTHER, SELFPAY ==
--- NOTE | 2024-07-02 16:14 | MRI_ITS ---
EXAM: MR HEAD WITHOUT AND WITH INTRAVENOUS CONTRAST, INTERNAL AUDITORY CANAL PROTOCOL CLINICAL INDICATION: IAC, dizzy, light headed, no hearing loss TECHNIQUE: Multiplanar and multisequence MR images of the internal auditory canal were obtained without and with intravenous contrast. CONTRAST: IV 15ML CLARISCAN COMPARISON: No relevant prior studies available. FINDINGS: CRANIAL NERVES: No significant abnormality. No mass. No abnormal enhancement. COCHLEA AND SEMICIRCULAR CANALS: No significant abnormality. CEREBELLOPONTINE ANGLES: No significant abnormality. No mass. BRAIN AND EXTRA-AXIAL SPACES: Scattered foci of T2 and T2 FLAIR hyperintensity within the white matter of bilateral cerebral hemispheres are nonspecific although most commonly due to chronic microvascular ischemic changes in a patient of this age. There is no restricted diffusion in the brain parenchyma to indicate recent infarct or other pathology. There is no intracranial mass or mass effect and there is no shift of midline structures. No hydrocephalus. Patent basal cisterns. No pathologic brain parenchymal or meningeal enhancement is identified. No intra- or extra-axial hemorrhage. Posterior fossa structures are unremarkable. BONES/JOINTS: No significant abnormality. No discrete lytic or blastic abnormalities. SINUSES: Normal as visualized. Clear. MASTOID AIR CELLS: Normal as visualized. Clear. ORBITS: Normal as visualized. Both globes, extraocular muscles, optic nerves and retrobulbar fat appear unremarkable. MRI/Brain W/WO Contrast IMPRESSION: White matter signal abnormalities are nonspecific although most commonly due to chronic microvascular ischemic changes. Otherwise, normal MRI of the brain and internal auditory canals without and with contrast. Electronically Signed: Kashif Menchaca DO at 20:40 EDT ,
[2024-07-02 16:51] LABS: CREATININE FINGERSTICK < 1.0 mg/dL (0.70-1.30); EGFR FINGERSTICK > 60.0000 mL/min (>60)
== END | disposition home or self-care (01) ==
LOC: MRI 16:08
PROVIDERS: PCP Family Medicine; Referring Provider Otolaryngology Otolaryngology/Facial Plastic Surgery; Visit Provider Otolaryngology Otolaryngology/Facial Plastic Surgery
DX: R42 Dizziness and giddiness (principal)
CPT/HCPCS: 70553; A9575

== ENCOUNTER → 2024-11-04 | Outpatient (CLI) | payer MEDICARE, OTHER, SELFPAY ==
[2024-11-04 14:11] LABS: AST(SGOT) 18 U/L (15-37); Alanine Aminotransfer ALT/SGPT 23 U/L (16-61); Albumin, Serum 3.8 g/dL (3.2-5.0); Alkaline Phosphatase 73 U/L (45-117); Bilirubin, Direct 0.24 mg/dL (0.00-0.30); Cholesterol 158 mg/dL (200); High Density Lipoprotein 53 mg/dL; Protein, Total 6.8 g/dL (6.4-8.2); Triglycerides 82 mg/dL; Very Low Density Lipoprotein 16 mg/dL (5-40)
== END | disposition home or self-care (01) ==
LOC: LAB 11:46
PROVIDERS: Internal Medicine Cardiovascular Disease; PCP Family Medicine; Referring Provider Physician Assistant Medical; Visit Provider Physician Assistant Medical
DX: E78.5 Hyperlipidemia, unspecified (principal)
CPT/HCPCS: 36415; 80061; 80076

== ENCOUNTER → 2024-11-11 | Outpatient (CLI) | payer MEDICARE, OTHER, SELFPAY ==
--- NOTE | 2024-11-11 06:26 | ECHOD_ITS ---
Reason For Study: CORONARY ARTERY DISEASE Procedure This was a 2D Doppler, Color Flow transthoracic echocardiogram. Exam performed in department. Left Ventricle Normal LV size. Left ventricular systolic function is normal. The left ventricular ejection fraction is 55 %. Stage 1 diastolic dysfunction. No regional wall motion abnormalities noted. Right Ventricle Normal RV size. Normal systolic function. Atria Normal left atrium. Normal right atrium. Mitral Valve Normal mitral valve. Tricuspid Valve Normal tricuspid valve. Aortic Valve Trisinus/trileaflet aortic valve. Pulmonic Valve Normal pulmonic valve. Great Vessels Normal aortic root. The pulmonary artery is normal size. Inferior vena cava collapse with respiration. Pericardium/Pleural No pericardial effusion. MMode/2D Measurements & Calculations LVIDd: 4.7 cm IVSd: 1.0 cm LVOT diam: 2.2 cm LVIDs: 3.2 cm LVPWd: 1.2 cm LVOT area: 3.7 cm2 RVDd: 3.4 cm FS: 31.1 % asc Aorta Diam: 3.8 cm LAV(MOD-bp): 39.4 ml LVAd ap4: 26.0 cm2 LAV(MOD-bp) Indexed: 20.1 ml/m2 LVLd ap4: 7.3 cm LAV(MOD-sp2): 46.2 ml EDV(MOD-sp4): 78.0 ml LAV(MOD-sp4): 31.9 ml EDV(sp4-el): 78.4 ml LVAs ap4: 17.0 cm2 LVLs ap4: 6.4 cm ESV(MOD-sp4): 38.8 ml ESV(sp4-el): 38.6 ml EF(MOD-sp4): 50.2 % EF(sp4-el): 50.7 % LVAd ap2: 23.3 cm2 SV(MOD-sp4): 39.2 ml SV(MOD-sp2): 40.1 ml LVLd ap2: 7.2 cm SI(MOD-sp4): 20.0 ml/m2 SI(MOD-sp2): 20.4 ml/m2 EDV(MOD-sp2): 64.6 ml EDV(sp2-el): 64.1 ml LVAs ap2: 12.8 cm2 LVLs ap2: 6.0 cm ESV(MOD-sp2): 24.5 ml ESV(sp2-el): 23.3 ml EF(MOD-sp2): 62.1 % SV(sp4-el): 39.8 ml Ao sinus diam: 3.[address] Junction: 2.8 cm LA dimension(2D): 3.3 cm LA A4 area: 14.1 cm2 RA A4 area: 13.0 cm2 TAPSE: 1.2 cm Time Measurements MV dec time: 0.15 sec Doppler Measurements & Calculations MV E max thang: 53.0 cm/sec Lat Peak E' Thang: 7.3 cm/sec Med Peak E' Thang: 5.2 cm/sec MV A max thang: 68.6 cm/sec E/E' lat: 7.3 E/E' med: 10.1 MV E/A: 0.77 MV dec slope: 358.1 cm/sec2 Ao V2 max: 118.8 cm/sec LV V1 max: 86.2 cm/sec Ao max P.6 mmHg LV V1 max P.0 mmHg Ao V2 mean: 83.6 cm/sec LV V1 mean P.8 mmHg Ao mean P.2 mmHg LV V1 mean: 63.8 cm/sec Ao V2 VTI: 28.8 cm LV V1 VTI: 17.5 cm AV (velocity ratio): 0.61 TOMY(I,D): 2.3 cm2 TOMY(V,D): 2.7 cm2 SV(LVOT): 65.2 ml PA V2 max: 68.5 cm/sec ECHO/Echo Complete Interpretation Summary Normal LV size. Left ventricular systolic function is normal. The left ventricular ejection fraction is 55 %. Stage 1 diastolic dysfunction. Structurally normal valves. Ordering Physician: Luis Vargas Referring Physician: Sukh Bullock MD Performed By: Nadine Rosado, ROSITA
--- NOTE | 2024-11-11 17:44 | STRESSREP ---
Stress Test Report Exercise myocardial perfusion stress test. 69-year-old man with a history of coronary artery disease Stress protocol: Resting EKG demonstrates normal sinus rhythm with premature atrial complexes and a rate of 66 bpm resting blood pressure is 137/88 mmHg. The patient exercised according to the regular [place] protocol for a total duration of 6 minutes attaining a maximum heart rate of 169 bpm which was 113% of maximum predicted heart rate; the maximum workload was 7 metabolic equivalents. At rest there were no ST or T wave changes noted to suggest ischemia and at peak exercise upsloping ST changes only were noted which did not meet the criteria for ischemia. No clinical angina was noted the test was terminated due to the target heart rate being achieved/fatigue. The peak blood pressure was 192/90 mmHg. Rate-pressure product was 25,200. Myocardial perfusion protocol. 11.7 mCi of technetium 99m sestamibi was injected at rest. The patient exercised according to regular [place] protocol for total duration of 6 minutes and at peak exercise 35.1 mCi of technetium 99m sestamibi was injected stress images were obtained stress and rest images were reconstructed in comparing the short axis vertical long and horizontal long axis. Gated images were also obtained. Perfusion SPECT analysis: Review of the stress images demonstrate normal uptake of tracer noted in all areas of the myocardium. The resting images similarly demonstrate normal uptake of tracer noted in all areas of the myocardium. No areas of reversibility are noted to suggest ischemia no previous infarct was noted. Gated SPECT analysis: The gated ejection fraction is 56%. Conclusion: Normal exercise myocardial perfusion stress test at a moderate workload Preserved ejection fraction.
== END | disposition home or self-care (01) ==
LOC: CVS 06:26
PROVIDERS: PCP Family Medicine; Referring Provider Internal Medicine Cardiovascular Disease; Visit Provider Internal Medicine Cardiovascular Disease
DX: I25.10 Atherosclerotic heart disease of native coronary artery without angina pectoris (principal); E78.5 Hyperlipidemia, unspecified
CPT/HCPCS: 78452; 93017; 93306; A9500; A4216

== ENCOUNTER → 2025-06-25 | Outpatient (CLI) | payer MEDICARE, OTHER, SELFPAY ==
[2025-06-25 11:31] LABS: PSA,Total- Diagnostic 1.06 ng/mL (0.00-4.00)
== END | disposition home or self-care (01) ==
PROVIDERS: PCP Family Medicine; Referring Provider Urology; Visit Provider Urology
DX: N40.1 Benign prostatic hyperplasia with lower urinary tract symptoms (principal)
CPT/HCPCS: 36415; 84153

== ENCOUNTER → 2025-07-16 | Outpatient (CLI) | payer MEDICARE, OTHER, SELFPAY ==
[2025-07-16 12:17] LABS: Creatinine, Urine (random) 158.00 mg/dL (39.00-259.00); Microalbumin,Random Urine < 12.0 mg/L (<20 mg/L)
[2025-07-16 12:21] LABS: AST(SGOT) 22 U/L (<=37); Alanine Aminotransfer ALT/SGPT 19 U/L (<=46); Albumin, Serum 4.1 g/dL (3.4-4.8); Alkaline Phosphatase 69 U/L (40-129); Anion Gap 10 (5-15); BUN 11 mg/dL (4-19); BUN/Creat Ratio 10.5 RATIO (10-20); Bilirubin, Direct 0.47 mg/dL (0.00-0.30); Calcium,Total 9.3 mg/dL (7.6-11.0); Carbon Dioxide 24.1 mmol/L (21.0-32.0); Chloride 107 mmol/L (98-108); Cholesterol 133 mg/dL (<=200); Globulin 2.5 g/dL (2.2-4.2); Glucose 94 mg/dL (70-99); Low Density Lipoprotein Calc. 61 mg/dL; Potassium 4.4 mmol/L (3.3-5.1); Triglycerides 58 mg/dL; Very Low Density Lipoprotein 12 mg/dL (5-40); cholesterol:hdl ratio screen 2.21
== END | disposition home or self-care (01) ==
LOC: LAB 10:54
PROVIDERS: PCP Family Medicine; Referring Provider Internal Medicine Cardiovascular Disease; Visit Provider Internal Medicine Cardiovascular Disease
DX: E78.00 Pure hypercholesterolemia, unspecified (principal); Z95.1 Presence of aortocoronary bypass graft; I10 Essential (primary) hypertension
CPT/HCPCS: 36415; 80048; 80061; 80076; 82043; 82570; 83036